=== PATIENT | female | born 1935 | race Caucasian/White ===

== ENCOUNTER 2017-02-28 18:02 | Emergency (ER) | payer MEDICARE ==
[2017-02-28 20:49] LABS: #Basophils 0.1 thou/uL (0.0-0.2); #Eosinphils 0.1 thou/uL (0.0-0.7); #Lymphocytes 1.3 thou/uL (1.20-3.40); #Monocytes 0.4 thou/uL (0.11-0.59); %Basophils 1.2 % (0.0-1.0); %Eosinophils 2.2 % (0.0-10.0); %Lymphocytes 21.6 % (21.0-51.0); %Monocytes 6.8 % (0.0-10.0); Hematocrit 37.5 % (36.0-47.0); Mean Platelet Volume 9.1 fL (7.4-10.4); Red Blood Cell (RBC) Count 3.99 mill/uL (4.20-5.40); White Blood Cell (WBC) Count 5.9 thou/uL (4.8-10.8)
[2017-02-28 21:08] LABS: Anion Gap 14 mmol/L (10-20); BUN (Urea Nitrogen) 15 mg/dL (9.8-20.1); Calc. Creatinine Clearance 0 mL/min (70-130); Carbon Dioxide 27 mmol/L (23-31); Chloride 105 mmol/L (98-107); Estimated GFR-MDRD 68
== END 2017-02-28 21:30 | disposition home or self-care (01) ==
LOC: ERS 18:02
DX: K64.4 Residual hemorrhoidal skin tags (principal); K64.8 Other hemorrhoids; E78.5 Hyperlipidemia, unspecified; E03.9 Hypothyroidism, unspecified; I48.91 Unspecified atrial fibrillation; E11.9 Type 2 diabetes mellitus without complications; E66.9 Obesity, unspecified; J44.9 Chronic obstructive pulmonary disease, unspecified; I11.0 Hypertensive heart disease with heart failure; I50.9 Heart failure, unspecified; F32.9 Major depressive disorder, single episode, unspecified
CPT/HCPCS: 36415; 80048; 85025; 99283

== ENCOUNTER 2017-04-03 16:06 | Emergency (ER) | payer MEDICARE ==
[2017-04-03 19:35] LABS: #Monocytes 0.4 thou/uL (0.11-0.59); #Neutrophils 10.8 thou/uL (1.40-6.50); %Basophils 0.1 % (0.0-1.0); %Eosinophils 0.3 % (0.0-10.0); %Lymphocytes 7.9 % (21.0-51.0); %Monocytes 3.1 % (0.0-10.0); Hematocrit 36.5 % (36.0-47.0); Mean Platelet Volume 8.9 fL (7.4-10.4); White Blood Cell (WBC) Count 12.2 thou/uL (4.8-10.8)
[2017-04-03 19:56] LABS: ALT (SGPT) 7 U/L (8-55); AST (SGOT) 11 U/L (5-34); Alkaline Phosphatase 59 U/L (40-150); Anion Gap 16 mmol/L (10-20); BUN (Urea Nitrogen) 29 mg/dL (9.8-20.1); Bilirubin, Total 0.6 mg/dL (0.2-1.2); Calc. Creatinine Clearance 0 mL/min (70-130); Calcium 10.7 mg/dL (7.8-10.44); Carbon Dioxide 26 mmol/L (23-31); Chloride 103 mmol/L (98-107); Estimated GFR-MDRD 45; Globulin 4.1 g/dL (2.4-3.5); Protein, Total 8.1 g/dL (6.0-8.3)
--- NOTE | 2017-04-03 21:05 | ULT ---
RIGHT LOWER EXTREMITY VENOUS DOPPLER 04/03/17 PROVIDED CLINICAL HISTORY: Right lower extremity pain. FINDINGS: Comparison is made with the study dated 10/10/16. Valdes scale and color doppler sonography with spectral analysis was performed of the right common femo ral, popliteal, posterior tibial, greater saphenous and profunda femoral veins, demonstrating a aiyana l sonographic appearance to each. IMPRESSION: No sonographic evidence for right lower extremity deep venous thrombosis. POS: [facility]
== END 2017-04-03 23:02 | disposition home or self-care (01) ==
LOC: ERS 16:06
DX: L03.115 Cellulitis of right lower limb (principal); E03.9 Hypothyroidism, unspecified; I48.91 Unspecified atrial fibrillation; E11.9 Type 2 diabetes mellitus without complications; E66.9 Obesity, unspecified; M06.9 Rheumatoid arthritis, unspecified; I11.0 Hypertensive heart disease with heart failure; I50.9 Heart failure, unspecified; J44.9 Chronic obstructive pulmonary disease, unspecified; F32.9 Major depressive disorder, single episode, unspecified
CPT/HCPCS: 36415; 80053; 85025; 86140

== ENCOUNTER 2017-04-10 14:56 | Inpatient (IN) | payer MEDICARE ==
[2017-04-10 19:12] LABS: #Basophils 0.1 thou/uL (0.0-0.2); #Eosinphils 0.1 thou/uL (0.0-0.7); #Lymphocytes 0.8 thou/uL (1.20-3.40); #Monocytes 0.4 thou/uL (0.11-0.59); #Neutrophils 5.1 thou/uL (1.40-6.50); %Basophils 0.8 % (0.0-1.0); %Eosinophils 1.1 % (0.0-10.0); %Lymphocytes 12.9 % (21.0-51.0); %Monocytes 6.6 % (0.0-10.0); %Neutrophils 78.6 % (42.0-75.0); Hemoglobin 11.3 g/dL (12.0-16.0); Mean Corpuscular HGB CONC 31.2 g/dL (32.0-36.0); Mean Corpuscular Hemoglobin 30.3 pg (27.0-31.0); Mean Platelet Volume 8.6 fL (7.4-10.4); Platelet Count 287 thou/uL (130-400); RBC Distribution Width 13.9 % (11.5-14.5); Red Blood Cell (RBC) Count 3.73 mill/uL (4.20-5.40); White Blood Cell (WBC) Count 6.4 thou/uL (4.8-10.8)
[2017-04-10 19:24] LABS: ALT (SGPT) 11 U/L (8-55); AST (SGOT) 18 U/L (5-34); Albumin 3.2 g/dL (3.4-4.8); Alkaline Phosphatase 82 U/L (40-150); Anion Gap 15 mmol/L (10-20); BUN (Urea Nitrogen) 13 mg/dL (9.8-20.1); Bilirubin, Total 0.5 mg/dL (0.2-1.2); CK (CPK) 16 U/L (29-168); Calc. Creatinine Clearance 0 mL/min (70-130); Calcium 10.3 mg/dL (7.8-10.44); Carbon Dioxide 23 mmol/L (23-31); Chloride 105 mmol/L (98-107); Estimated GFR-MDRD 72; Glucose 104 mg/dL (83-110); Potassium 5.2 mmol/L (3.5-5.1); Protein, Total 7.2 g/dL (6.0-8.3); Sodium 138 mmol/L (136-145)
[2017-04-10 19:34] LABS: CKMB 0.6 ng/mL (0-6.6)
[2017-04-10 19:44] LABS: Bilirubin Small (Negative); Blood, Urine Negative (Negative); Clarity CLEAR (Clear); Glucose, Urine (Dipstick) Negative (Negative); Leukocyte Negative (Negative); Nitrite Negative (Negative); Protein, Urine (Dipstick) Negative (Neg-Trace); Specific Gravity, Urine 1.028 (1.002-1.036); Urobilinogen 0.2 mg/dL (0.2-1.0); pH, Urine 5.5 (5.0-9.0)
[2017-04-10] MEDS ORDERED: Piperacillin/Tazobactam 4.5 GM in Sodium Chloride 0.9% 100 ML IVPB SCH (20:45)
--- NOTE | 2017-04-10 21:06 | ULT ---
ULTRASOUND WITH DOPPLER DUPLEX VENOUS LOWER EXTREMITY RIGHT CPT: 01764 ICD-10-PCS: B54D HISTORY: Pain, edema and erythema of right lower extremity. COMPARISON: 04/03/17 TECHNIQUE: Color flow Doppler, spectral waveform analysis of pulsed Doppler, and bear-scale imaging with ana adam and augmentation, were used to evaluate the right common femoral, femoral, popliteal, posterior tibial, and superficial femoral, veins; and the proximal portions of the profunda femoral and greater saphenous, veins. FINDINGS: Appropriate compressibility and flow within the imaged deep vein system of the right lower extremity. IMPRESSION: No DVT. Soft tissue edema. Correlate clinically. POS: [facility]
[2017-04-10] MEDS ORDERED: Sodium Chloride 0.9% 1,000 ML IV SCH (22:15)
[2017-04-10 22:57] LABS: Lactic Acid 1.2 mmol/L (0.5-2.2)
[2017-04-10] MEDS ORDERED: Vancomycin HCl 1 GM in Premix Bag 1 BAG IVPB SCH (23:00)
[2017-04-11] MEDS ORDERED: HumaLOG 300 UNITS/3 ML VIAL SC PRN (01:20)
[2017-04-11] MEDS ORDERED: PROVENTIL INHALER 6.7 G (200 INHALATIONS) INH PRN (01:20)
[2017-04-11] MEDS ORDERED: Dextrose 5% in Water 1,000 ML IV PRN (01:20)
[2017-04-11] MEDS ORDERED: Dextrose 50% Abboject 50 ML SYRINGE SLOW IVP PRN (01:20)
[2017-04-11] MEDS ORDERED: Lorazepam 1 MG TAB PO PRN (01:20)
[2017-04-11] MEDS ORDERED: hydrALAZINE 20 MG/ML VIAL SLOW IVP PRN (01:20)
[2017-04-11] MEDS ORDERED: Milk Of Magnesia 30 ML UDCUP PO PRN (01:20)
[2017-04-11] MEDS: Vancomycin HCl 1.5 GM in Sodium Chloride 0.9% 250 ML 300 ML IVPB SCH (03:06)
[2017-04-11] MEDS: HYDROcodone/Acetaminophen 5/325 mg Tablet PO PRN (03:09)
[2017-04-11 03:16] VITALS: BMI 41.5
--- NOTE | 2017-04-11 04:33 | HP ---
PRIMARY CARE PHYSICIAN: Gretchen Pearson M.D. CHIEF COMPLAINT: Pain and swelling in the right leg. HISTORY OF PRESENT ILLNESS: Ms. Hernandez is a very pleasant 81-year-old female who has a history of hyp ertension, atrial fibrillation, diabetes mellitus who says that about 8-10 days ago she began having some pain and swelling in the right leg. She says it started hurting and noticed that it was turning red. She went to the emergency room to see about it, she was diagnosed with cellulitis and started on doxycycline. She says she was taking the antibiotics, but her symptoms did not get any better, in fact she thinks it may even got a little worse. She says that the pain got to the point where she c ould barely put any weight on her legs. She noticed more and more redness. Her home health nurse ca me in to evaluate her in and felt she needed to be seen immediately, this was on . Unfo rtunately, her physician was not in and as a result, she called 911 today and came to the emergency r oom and is being admitted for a right lower extremity cellulitis. It is noted in the ER, she did hav e a lower extremity venous Doppler, which was negative for DVT. The patient denies any fever or chil ls, but has had increasing swelling and pain. She is not really sure how it is started. She denies any trauma and otherwise, no other significant complaints. REVIEW OF SYSTEMS: CONSTITUTIONAL: Again, no fevers, no chills, no night sweats, no weight loss. HEENT: She says she has an occasional headache after having something fall on the top of her head a few years ago. She also occasionally will feel some dizziness related to this as well, but no sore t hroat, no neck pain. No adenopathy. No rhinorrhea. PULMONARY: No hemoptysis, no cough, no wheezing. CARDIOVASCULAR: She denies any chest pain, no shortness of breath, no PND, no orthopnea. GASTROINTESTINAL: She occasionally has some constipation and has had problems with hemorrhoids, no h ematemesis, no melena. GENITOURINARY: No urinary frequency, hematuria or hesitancy. MUSCULOSKELETAL: She complains of arthritis pains "allover." She says she hurts every day. If she does not hurt then she says that something is wrong. NEUROLOGIC: No focal weakness, numbness, no seizures. PSYCHIATRIC: No symptoms of anxiety or depression. SKIN AND INTEGUMENT: As the history of present illness. PAST MEDICAL HISTORY: Significant for hypertension, atrial fibrillation, hypercholesterolemia, diabe jass mellitus type 2, obesity, rheumatoid arthritis, congestive heart failure, and lymphoma. PAST SURGICAL HISTORY: She has had a pericardial window, a left hip surgery, surgery for lymphoma, b reast biopsy and what sounds like a thoracentesis. ALLERGIES: No known drug allergies. SOCIAL HISTORY: She is a nonsmoker, nondrinker. Her son lives with her. CODE STATUS: FULL CODE. FAMILY HISTORY: Significant for cervical cancer and father had cerebrovascular accident. CURRENT MEDICATIONS: Include temazepam 15 mg at bedtime, Aldactone 25 mg daily, Xarelto 20 mg daily, Pravachol 40 mg daily, potassium chloride 20 mEq daily, Protonix 40 mg daily, nitrofurantoin 100 mg twice a day, metformin 1000 mg twice daily, levothyroxine 175 mcg daily, furosemide 40 mg daily, ferr ous sulfate 325 mg daily, Lexapro 10 mg daily, cholestyramine 4 grams daily, carvedilol 6.25 mg twice daily and Proventil 2 puffs q.6 hours as needed. PHYSICAL EXAMINATION: GENERAL: She is alert and oriented. She appears to be in no acute distress. She is well-developed and well-nourished. VITAL SIGNS: Blood pressure was 118/78, heart rate 82, respiratory rate of 18, temperature is 97.5. HEENT: Pupils are equal, round, and reactive. Extraocular muscles are intact. Her sclerae are anic teric. Throat: No erythema, no exudates. NECK: No adenopathy, no bruits. LUNGS: Clear to auscultation, no wheezing, no rales. CARDIOVASCULAR: She has an irregular rhythm, normal rate, grade 2/6 systolic murmur. ABDOMEN: Obese, it is soft, it is nontender, nondistended. Positive for bowel sounds. No rebound, no guarding. EXTREMITIES: She has significant redness and warmth in the right lower extremity. This is extending up into the medial thigh. There are some areas in the posterior popliteal fossa, which are dark red and purplish and also on the medial aspect of her calf. She has got 2 to 3+ pitting edema as well a s some vesicular lesions on the medial ankle on the medial malleolus. Pulses are palpable, but sligh tly diminished. She does have some bunion deformity and hammertoe deformity bilaterally. NEUROLOGIC: It was nonfocal. LABORATORY DATA: Lab results white blood cell count 6.4, hemoglobin 11.3, hematocrit is 36.2, platel et count is 287,000. Sodium 138, potassium 5.2, chloride is 105, CO2 was 23, BUN of 13, creatinine 0 .77, glucose is 72. Urinalysis was significant for small bilirubin. An x-ray, vascular ultrasound w as negative for DVT. ASSESSMENT: 1. This is a pleasant 81-year-old female that is being admitted for lower extremity edema and swelli ng and redness and she has failed outpatient treatment with doxycycline for cellulitis. She will be admitted to the medical floor, started on antibiotics to cover Staph and strep including vancomycin f or methicillin-resistant staphylococcus aureus. Blood cultures will be obtained, if not done so alre raffaele in the ER. We will also get a wound care consult. 2. Atrial fibrillation, we will continue her usual medications including Xarelto for cerebrovascular accident prevention. 3. Diabetes mellitus, again continue her home medications as well as sliding scale insulin. 4. Hypertension, again home medications and p.r.n. antihypertensive medications. Since she is on an ticoagulation, she will not need deep venous thrombosis prophylaxis. However, we will continue gastr ointestinal prophylaxis. I suspect she will need to be hospitalized for at least 2-3 midnights in [facility] area prior to being discharged home.
[2017-04-11 05:05] LABS: #Basophils 0.1 thou/uL (0.0-0.2); #Eosinphils 0.1 thou/uL (0.0-0.7); #Lymphocytes 1.1 thou/uL (1.20-3.40); #Monocytes 0.5 thou/uL (0.11-0.59); #Neutrophils 4.3 thou/uL (1.40-6.50); %Basophils 0.8 % (0.0-1.0); %Eosinophils 1.9 % (0.0-10.0); %Lymphocytes 18.3 % (21.0-51.0); %Monocytes 8.9 % (0.0-10.0); %Neutrophils 70.1 % (42.0-75.0); Hemoglobin 9.8 g/dL (12.0-16.0); Mean Corpuscular HGB CONC 30.2 g/dL (32.0-36.0); Mean Corpuscular Hemoglobin 29.3 pg (27.0-31.0); Mean Corpuscular Volume 97.1 fl (81.0-99.0); Mean Platelet Volume 7.8 fL (7.4-10.4); Platelet Count 273 thou/uL (130-400); RBC Distribution Width 13.6 % (11.5-14.5); Red Blood Cell (RBC) Count 3.36 mill/uL (4.20-5.40); White Blood Cell (WBC) Count 6.1 thou/uL (4.8-10.8)
[2017-04-11] MEDS: Piperacillin/Tazobactam 3.375 GM in Sodium Chloride 0.9% 100 ML IVPB SCH ×4 (05:51→23:58)
[2017-04-11] MEDS: Levothyroxine 175 MCG TAB PO SCH (05:52)
[2017-04-11 05:58] LABS: Anion Gap 10 mmol/L (10-20); BUN (Urea Nitrogen) 12 mg/dL (9.8-20.1); Calc. Creatinine Clearance 98 mL/min (70-130); Calcium 9.9 mg/dL (7.8-10.44); Carbon Dioxide 31 mmol/L (23-31); Chloride 105 mmol/L (98-107); Estimated GFR-MDRD 72; Glucose 135 mg/dL (83-110); Sodium 141 mmol/L (136-145)
[2017-04-11] MEDS ORDERED: Piperacillin/Tazobactam 4.5 GM in Sodium Chloride 0.9% 100 ML IVPB SCH (06:00)
[2017-04-11] MEDS: Spironolactone 25 MG TAB PO SCH (08:16)
[2017-04-11] MEDS ORDERED: Vancomycin HCl 1 GM in Premix Bag 1 BAG IVPB SCH (09:00)
[2017-04-11] MEDS ORDERED: Non-Formulary Item 1 EACH (Potassium Chloride [Potassium Chloride] 20 MEQ) PO SCH (09:00)
[2017-04-11] MEDS: Escitalopram Oxalate 10 mg Tablet PO SCH (09:04)
[2017-04-11] MEDS: Famotidine 20 MG TAB PO SCH ×2 (09:04→19:21)
[2017-04-11] MEDS: Carvedilol 6.25 MG TAB PO SCH ×2 (09:04→19:21)
[2017-04-11] MEDS: Docusate 100 MG CAP PO SCH ×2 (09:04→19:20)
[2017-04-11] MEDS: Ferrous Sulfate 325 MG TAB PO SCH (09:05)
[2017-04-11] MEDS: Furosemide 40 MG TAB PO SCH (09:07)
[2017-04-11] MEDS: Rivaroxaban 10 MG TAB PO SCH (17:26)
[2017-04-11] MEDS: HYDROcodone/Acetaminophen 10/325 mg Tablet PO PRN (19:20)
[2017-04-11] MEDS: Atorvastatin Calcium 10 MG TAB PO SCH (19:20)
[2017-04-11] MEDS: Acetaminophen 325 MG TAB PO PRN (19:21)
[2017-04-12 02:38] LABS: Vancomycin, Trough 9.2 ug/mL
[2017-04-12] MEDS: Vancomycin HCl 1.5 GM in Sodium Chloride 0.9% 250 ML 300 ML IVPB SCH (02:50)
[2017-04-12] MEDS: Levothyroxine 175 MCG TAB PO SCH (05:48)
[2017-04-12] MEDS: Piperacillin/Tazobactam 3.375 GM in Sodium Chloride 0.9% 100 ML IVPB SCH ×3 (05:48→18:09)
--- NOTE | 2017-04-12 09:14 | PDOC.PN ---
- Subjective Encounter Start Date: 04/12/17 Encounter Start Time: 10:30 Subjective: Pain and swelling in RLE improved some today. No fever. No other -: complaint. - Objective Resuscitation Status: Resuscitation Status FULL:Full Resuscitation MAR Reviewed: Yes Vital Signs & Weight: Vital Signs (12 hours) Temp Pulse Resp BP Pulse Ox 04/12/17 07:28 97.7 F 77 20 107/71 92 L 04/12/17 05:17 97/63 04/12/17 00:20 98.1 F 75 18 108/69 92 L Weight Admit Weight 242 lb Weight 242 lb I&O: 04/11/17 04/12/17 04/13/17 06:59 06:59 06:59 Intake Total 900 Balance 900 Result Diagrams: 04/11/17 03:20 04/11/17 03:20 Additional Labs: Accuchecks 04/12/17 04/11/17 04/11/17 05:10 20:42 16:15 POC Glucose 111 H 172 H 130 H 04/11/17 11:20 POC Glucose 129 H Phys Exam - Physical Examination Constitutional: NAD HEENT: moist MMs Respiratory: no wheezing, no rales, no rhonchi, clear to auscultation bilateral Cardiovascular: RRR, no significant murmur Gastrointestinal: soft, positive bowel sounds Neurological: non-focal, moves all 4 limbs Psychiatric: normal affect, A&O x 3 Deviation from normal: cellulitis to RLE, improved on thigh from admit pictures , some small -: bullae on medial leg not draining Dx/Plan (1) Cellulitis of right lower extremity Code(s): L03.115 - CELLULITIS OF RIGHT LOWER LIMB Status: Acute Plan: Improving with IV antibiotics Comment: Zosyn and Vancomycin since 04/10/2017 PM (2) Atrial fibrillation Code(s): I48.91 - UNSPECIFIED ATRIAL FIBRILLATION Status: Chronic Qualifiers: (3) Chronic anticoagulation Code(s): Z79.01 - NURSING HOME (CURRENT) USE OF ANTICOAGULANTS Status: Chronic (4) DM2 (diabetes mellitus, type 2) Status: Chronic Qualifiers: Diabetes mellitus complication status: without complication Diabetes mellitus [facility] insulin use: with [facility] use Qualified Code(s): E11.9 - Type 2 diabetes mellitus without complications; Z79.4 - USP (current) use of insulin; Z79.4 - truck terminal manager (current) use of insulin; Z79.4 - truck terminal manager ( current) use of insulin; Z79.4 - truck terminal manager (current) use of insulin (5) HLD (hyperlipidemia) Code(s): E78.5 - HYPERLIPIDEMIA, UNSPECIFIED Status: Chronic (6) HTN (hypertension) Code(s): I10 - ESSENTIAL (PRIMARY) HYPERTENSION Status: Chronic (7) Hypothyroidism Code(s): E03.9 - HYPOTHYROIDISM, UNSPECIFIED Status: Chronic (8) Morbid obesity with BMI of 40.0-44.9, adult Code(s): E66.01 - MORBID (SEVERE) OBESITY DUE TO EXCESS CALORIES; Z68.41 - BODY MASS INDEX (BMI) 40.0-44.9, ADULT Status: Chronic (9) Pulmonary hypertension Code(s): I27.2 - OTHER SECONDARY PULMONARY HYPERTENSION * DO NOT USE * Status : Chronic - Plan cont current plan of care, continue antibiotics, PT/OT, DVT proph w/SCDs Afebrile without leukocytosis. Anticipate at least 1-2 more days of IV -: antibiotics before can consider switch to oral and d/c. Concern for -: possible staph with bullae. Will need MRSA coverage on d/c. * . - Discharge Day Encounter end time: 11:00
[2017-04-12] MEDS: Ferrous Sulfate 325 MG TAB PO SCH (10:23)
[2017-04-12] MEDS: Carvedilol 6.25 MG TAB PO SCH ×2 (10:24→20:16)
[2017-04-12] MEDS: Spironolactone 25 MG TAB PO SCH (10:25)
[2017-04-12] MEDS: Escitalopram Oxalate 10 mg Tablet PO SCH (10:25)
[2017-04-12] MEDS: Docusate 100 MG CAP PO SCH ×2 (10:25→20:16)
[2017-04-12] MEDS: Furosemide 40 MG TAB PO SCH (10:25)
--- NOTE | 2017-04-12 11:00 | PQF ---
CLINICAL DOCUMENTATION IMPROVEMENT CLARIFICATION FORM: ICD-10 Updated PLEASE DO AN ADDENDUM TO THE PROGRESS NOTE WITH ANY DOCUMENTATION UPDATES OR ADDITIONS AND CARRY THROUGH TO DC SUMMARY. THANK YOU. DATE: 04/12, 04/13 ATTN: DR. Xiomy HERNÁNDEZ/ DR. DORIS MCLEAN Please exercise your independent, professional judgment in responding to the clarification form. Clinical indicators are provided on the bottom of this form for your review. Please check appropriate box(s): R LE CELLULITIS [ ] Due to Diabetes [ ] Not due to Diabetes [ ] Other diagnosis [X ] Unable to determine For continuity of documentation, please document condition throughout progress notes and discharge summary. Thank You. CLINICAL INDICATORS - SIGNS / SYMPTOMS / LABS PHYSICIAN H&P DOCUMENTATION 04/10: HX OF PRESENT ILLNESS: ...HX OF HTN, AFIB, DIABETES MELLITUS II WHO STATES 8-10 DAYS AGO SHE BEGAN HAVING PAIN & SWELLING TO R LEG. ...SHE WENT TO ER & WAS DIAGNOSED WITH CELLULITIS & STARTED ON DOXYCYCLINE. ASSESSMENT: 1. ...ADMITTED FOR LE EDEMA & SWELLING & REDNESS & SHE HAS FAILED OUTPT TREATMENT FOR CELLULITIS ATTENDING PN 04/12: DX/PLAN: 1. CELLULITIS RLE; 4. DM II, CHRONIC RISKS: DM II MORBID OBESITY TREATMENT: IV ANTIBIOTICS (ZOSYN & VANCOMYCIN 04/10 - PRESENT) WOUND CARE CONSULT THANK YOU! Shanna (This form is maintained as a part of the permanent medical record) 2014 [employer]. All Rights Reserved Shanna Devine RN, BSN [email or web address] Office: [phone] [facility]
[2017-04-12] MEDS: Famotidine 20 MG TAB PO SCH ×2 (12:32→20:16)
[2017-04-12] MEDS: Vancomycin HCl 1 GM in Premix Bag 1 BAG IVPB SCH (15:21)
[2017-04-12] MEDS: HYDROcodone/Acetaminophen 5/325 mg Tablet PO PRN (15:22)
[2017-04-12] MEDS: Rivaroxaban 10 MG TAB PO SCH (18:09)
[2017-04-12] MEDS: HumaLOG 300 UNITS/3 ML VIAL SC PRN (18:13)
[2017-04-12] MEDS: HYDROcodone/Acetaminophen 10/325 mg Tablet PO PRN (20:16)
[2017-04-12] MEDS: Atorvastatin Calcium 10 MG TAB PO SCH (20:16)
[2017-04-12] MEDS: Temazepam 15 MG CAP PO PRN ×2 (22:36)
[2017-04-13] MEDS: Piperacillin/Tazobactam 3.375 GM in Sodium Chloride 0.9% 100 ML IVPB SCH ×4 (00:20→18:39)
[2017-04-13] MEDS: Vancomycin HCl 1 GM in Premix Bag 1 BAG IVPB SCH ×2 (02:14→14:48)
[2017-04-13 04:37] LABS: Hemoglobin 9.2 g/dL (12.0-16.0); Platelet Count 240 thou/uL (130-400)
[2017-04-13] MEDS: Levothyroxine 175 MCG TAB PO SCH (05:06)
[2017-04-13] MEDS: HumaLOG 300 UNITS/3 ML VIAL SC PRN ×2 (05:47→13:26)
[2017-04-13] MEDS: HYDROcodone/Acetaminophen 10/325 mg Tablet PO PRN ×3 (05:52→20:24)
[2017-04-13] MEDS: Carvedilol 6.25 MG TAB PO SCH ×2 (09:06→20:23)
[2017-04-13] MEDS: Spironolactone 25 MG TAB PO SCH (09:06)
[2017-04-13] MEDS: Ferrous Sulfate 325 MG TAB PO SCH (09:06)
[2017-04-13] MEDS: Furosemide 40 MG TAB PO SCH (09:06)
[2017-04-13] MEDS: Famotidine 20 MG TAB PO SCH ×2 (09:06→20:24)
[2017-04-13] MEDS: Docusate 100 MG CAP PO SCH ×2 (09:07→20:24)
[2017-04-13] MEDS: Escitalopram Oxalate 10 mg Tablet PO SCH (09:07)
--- NOTE | 2017-04-13 13:32 | PDOC.PN ---
- Subjective Encounter Start Date: 04/13/17 Encounter Start Time: 13:30 Ms. Hernandez was seen today in follow-up of cellulitis of the leg. She feels like her leg has improved, but she continues to have soreness in it especially when she puts pressure on it. - Objective Resuscitation Status: Resuscitation Status FULL:Full Resuscitation MAR Reviewed: Yes Vital Signs & Weight: Vital Signs (12 hours) Temp Pulse Resp BP BP Pulse Ox 04/13/17 09:06 100/56 L 04/13/17 08:00 97.6 F 77 14 100/56 L 92 L 04/13/17 05:00 98.5 F 87 20 103/70 Weight Admit Weight 242 lb Weight 242 lb I&O: 04/12/17 04/13/17 04/14/17 06:59 06:59 06:59 Intake Total 900 Balance 900 Result Diagrams: 04/13/17 03:27 04/11/17 03:20 Additional Labs: Accuchecks 04/13/17 04/13/17 04/12/17 11:01 05:09 21:03 POC Glucose 159 H 217 H 165 H 04/12/17 16:51 POC Glucose 167 H Phys Exam - Physical Examination HEENT: PERRLA Respiratory: no wheezing, no rales, no rhonchi, clear to auscultation bilateral Cardiovascular: RRR, no significant murmur Gastrointestinal: soft, non-tender, positive bowel sounds Musculoskeletal: edema present + extensive swelling in the right lower extremity, erythema, - slightly improved Dx/Plan (1) Cellulitis of right lower extremity Code(s): L03.115 - CELLULITIS OF RIGHT LOWER LIMB Status: Acute Comment: Zosyn and Vancomycin since 04/10/2017 PM (2) Atrial fibrillation Code(s): I48.91 - UNSPECIFIED ATRIAL FIBRILLATION Status: Chronic Qualifiers: (3) Chronic anticoagulation Code(s): Z79.01 - ILLUSIONIST (CURRENT) USE OF ANTICOAGULANTS Status: Chronic (4) DM2 (diabetes mellitus, type 2) Status: Chronic Qualifiers: Diabetes mellitus complication status: without complication Diabetes mellitus [facility] insulin use: with [facility] use Qualified Code(s): E11.9 - Type 2 diabetes mellitus without complications; Z79.4 - [facility] (current) use of insulin; Z79.4 - adjunct faculty for medical terminology (current) use of insulin; Z79.4 - adjunct faculty for medical terminology ( current) use of insulin; Z79.4 - [facility] (current) use of insulin (5) HTN (hypertension) Code(s): I10 - ESSENTIAL (PRIMARY) HYPERTENSION Status: Chronic (6) Hypothyroidism Code(s): E03.9 - HYPOTHYROIDISM, UNSPECIFIED Status: Chronic - Plan * Cellulitis of the right lower extremity- continue Vancomycin and Zosyn - she has had some improvement * DM- blood glucose is stable * HTN- blood pressure is low normal * AFIB- clinically she is in sinus, rate is controlled, she is on Xarelto for CVA prevention. * Hypothyroidism- chronic and stable
[2017-04-13] MEDS: Rivaroxaban 10 MG TAB PO SCH (18:39)
[2017-04-13] MEDS: Atorvastatin Calcium 10 MG TAB PO SCH (20:23)
[2017-04-14] MEDS: Piperacillin/Tazobactam 3.375 GM in Sodium Chloride 0.9% 100 ML IVPB SCH ×5 (00:13→23:47)
[2017-04-14 02:09] LABS: #Eosinphils 0.2 thou/uL (0.0-0.7); #Lymphocytes 1.1 thou/uL (1.20-3.40); #Monocytes 0.4 thou/uL (0.11-0.59); #Neutrophils 5.5 thou/uL (1.40-6.50); %Basophils 0.2 % (0.0-1.0); %Eosinophils 2.2 % (0.0-10.0); %Monocytes 5.7 % (0.0-10.0); %Neutrophils 76.9 % (42.0-75.0); Hemoglobin 9.3 g/dL (12.0-16.0); Mean Corpuscular Hemoglobin 30.8 pg (27.0-31.0); Mean Platelet Volume 7.2 fL (7.4-10.4); Platelet Count 261 thou/uL (130-400); RBC Distribution Width 13.5 % (11.5-14.5); Red Blood Cell (RBC) Count 3.02 mill/uL (4.20-5.40); White Blood Cell (WBC) Count 7.2 thou/uL (4.8-10.8)
[2017-04-14 02:29] LABS: Vancomycin, Trough 22.1 ug/mL
[2017-04-14] MEDS: Vancomycin HCl 1 GM in Premix Bag 1 BAG IVPB SCH (02:34)
[2017-04-14 02:35] LABS: Anion Gap 13 mmol/L (10-20); BUN (Urea Nitrogen) 9 mg/dL (9.8-20.1); Calc. Creatinine Clearance 93 mL/min (70-130); Calcium 9.3 mg/dL (7.8-10.44); Carbon Dioxide 31 mmol/L (23-31); Chloride 103 mmol/L (98-107); Estimated GFR-MDRD 68; Glucose 115 mg/dL (83-110); Potassium 3.9 mmol/L (3.5-5.1); Sodium 143 mmol/L (136-145)
[2017-04-14] MEDS: HumaLOG 300 UNITS/3 ML VIAL SC PRN (05:16)
[2017-04-14] MEDS: Levothyroxine 175 MCG TAB PO SCH (05:16)
[2017-04-14] MEDS: Docusate 100 MG CAP PO SCH ×2 (08:05→19:53)
[2017-04-14] MEDS: Carvedilol 6.25 MG TAB PO SCH ×2 (08:05→19:53)
[2017-04-14] MEDS: Famotidine 20 MG TAB PO SCH ×2 (08:06→19:53)
[2017-04-14] MEDS: Escitalopram Oxalate 10 mg Tablet PO SCH (08:06)
[2017-04-14] MEDS: Spironolactone 25 MG TAB PO SCH (08:06)
[2017-04-14] MEDS: Furosemide 40 MG TAB PO SCH (08:06)
[2017-04-14] MEDS: Ferrous Sulfate 325 MG TAB PO SCH (08:06)
[2017-04-14] MEDS: HYDROcodone/Acetaminophen 10/325 mg Tablet PO PRN ×2 (11:50→19:54)
--- NOTE | 2017-04-14 15:05 | PDOC.PN ---
- Subjective Encounter Start Date: 04/14/17 Encounter Start Time: 15:03 Ms. Hernandez was seen today in follow-up. She says the pain in her leg has improved some. No new complaints. - Objective Resuscitation Status: Resuscitation Status FULL:Full Resuscitation MAR Reviewed: Yes Vital Signs & Weight: Vital Signs (12 hours) Temp Pulse Resp BP BP BP Pulse Ox 04/14/17 08:21 97.9 F 80 22 H 108/70 94 L 04/14/17 08:05 100/56 L 04/14/17 08:00 97.9 F 80 22 H 98 04/14/17 04:19 98.2 F 73 18 98/67 92 L Weight Admit Weight 242 lb Weight 242 lb I&O: 04/13/17 04/14/17 04/15/17 06:59 06:59 06:59 Intake Total 600 480 Balance 600 480 Result Diagrams: 04/14/17 01:55 04/14/17 01:55 Additional Labs: Accuchecks 04/14/17 04/14/17 04/13/17 11:49 04:19 19:28 POC Glucose 201 H 185 H 186 H 04/13/17 16:00 POC Glucose 121 H Phys Exam - Physical Examination HEENT: PERRLA Respiratory: no wheezing, no rales, no rhonchi, clear to auscultation bilateral Cardiovascular: RRR, no significant murmur, no rub Gastrointestinal: soft, non-tender, positive bowel sounds Musculoskeletal: edema present decreasing edema, and erythema of the right lower extremity Dx/Plan (1) Cellulitis of right lower extremity Code(s): L03.115 - CELLULITIS OF RIGHT LOWER LIMB Status: Acute Comment: Zosyn and Vancomycin since 04/10/2017 PM (2) Atrial fibrillation Code(s): I48.91 - UNSPECIFIED ATRIAL FIBRILLATION Status: Chronic Qualifiers: (3) Chronic anticoagulation Code(s): Z79.01 - UNHAIRING MACHINE OPERATOR (CURRENT) USE OF ANTICOAGULANTS Status: Chronic (4) DM2 (diabetes mellitus, type 2) Status: Chronic Qualifiers: Diabetes mellitus complication status: without complication Diabetes mellitus [facility] insulin use: with lobsterman use Qualified Code(s): E11.9 - Type 2 diabetes mellitus without complications; Z79.4 - lobsterman (current) use of insulin; Z79.4 - lobsterman (current) use of insulin; Z79.4 - lobsterman ( current) use of insulin; Z79.4 - custodial (current) use of insulin (5) HTN (hypertension) Code(s): I10 - ESSENTIAL (PRIMARY) HYPERTENSION Status: Chronic (6) Hypothyroidism Code(s): E03.9 - HYPOTHYROIDISM, UNSPECIFIED Status: Chronic - Plan * Cellulitis- improving- continue the current antibiotics * DM- blood glucose is stable. * AFIB- heart rate is stable, and continue Xarelto * Hypothyroidism- stable
[2017-04-14] MEDS: Rivaroxaban 10 MG TAB PO SCH (17:38)
[2017-04-14] MEDS: Atorvastatin Calcium 10 MG TAB PO SCH (19:53)
[2017-04-15] MEDS: Temazepam 15 MG CAP PO PRN (00:25)
[2017-04-15] MEDS: Vancomycin HCl 1.75 GM in Sodium Chloride 0.9% 500 ML IVPB SCH (02:18)
[2017-04-15 05:16] LABS: Hemoglobin 8.8 g/dL (12.0-16.0); Platelet Count 263 thou/uL (130-400)
[2017-04-15] MEDS: Piperacillin/Tazobactam 3.375 GM in Sodium Chloride 0.9% 100 ML IVPB SCH ×3 (05:19→17:47)
[2017-04-15] MEDS: Levothyroxine 175 MCG TAB PO SCH (05:21)
[2017-04-15] MEDS: Ferrous Sulfate 325 MG TAB PO SCH (08:02)
[2017-04-15] MEDS: Docusate 100 MG CAP PO SCH ×2 (08:02→21:26)
[2017-04-15] MEDS: Famotidine 20 MG TAB PO SCH ×2 (08:02→21:26)
[2017-04-15] MEDS: Furosemide 40 MG TAB PO SCH (08:02)
[2017-04-15] MEDS: Spironolactone 25 MG TAB PO SCH (08:02)
[2017-04-15] MEDS: Carvedilol 6.25 MG TAB PO SCH ×2 (08:02→21:26)
[2017-04-15] MEDS: Escitalopram Oxalate 10 mg Tablet PO SCH (08:02)
[2017-04-15] MEDS: HYDROcodone/Acetaminophen 10/325 mg Tablet PO PRN ×2 (08:05→18:48)
--- NOTE | 2017-04-15 16:23 | PDOC.PN ---
- Subjective Encounter Start Date: 04/15/17 Encounter Start Time: 16:21 Ms. Hernandez was seen today in follow-up of right leg cellulits. She notes continued improvement in the leg with regards to pain and swelling. - Objective Resuscitation Status: Resuscitation Status FULL:Full Resuscitation MAR Reviewed: Yes Vital Signs & Weight: Vital Signs (12 hours) Temp Pulse Resp BP BP Pulse Ox 04/15/17 08:02 135/83 04/15/17 08:00 97.9 F 79 19 118/70 95 Weight Admit Weight 242 lb Weight 242 lb I&O: 04/14/17 04/15/17 04/16/17 06:59 06:59 06:59 Intake Total 600 1540 480 Balance 600 1540 480 Result Diagrams: 04/15/17 03:42 04/14/17 01:55 Additional Labs: Accuchecks 04/15/17 04/15/17 04/14/17 11:02 05:25 19:50 POC Glucose 199 H 111 H 166 H Phys Exam - Physical Examination HEENT: PERRLA Respiratory: no wheezing, no rales, no rhonchi, clear to auscultation bilateral Cardiovascular: RRR, no significant murmur Gastrointestinal: soft, non-tender, positive bowel sounds Decreased swelling in the right lower extremity, erythema has improved Dx/Plan (1) Cellulitis of right lower extremity Code(s): L03.115 - CELLULITIS OF RIGHT LOWER LIMB Status: Acute Comment: Zosyn and Vancomycin since 04/10/2017 PM (2) Atrial fibrillation Code(s): I48.91 - UNSPECIFIED ATRIAL FIBRILLATION Status: Chronic Qualifiers: (3) Chronic anticoagulation Code(s): Z79.01 - [employer]ITY (CURRENT) USE OF ANTICOAGULANTS Status: Chronic (4) DM2 (diabetes mellitus, type 2) Status: Chronic Qualifiers: Diabetes mellitus complication status: without complication Diabetes mellitus terminologist insulin use: with [facility] use Qualified Code(s): E11.9 - Type 2 diabetes mellitus without complications; Z79.4 - terminologist (current) use of insulin; Z79.4 - correction (current) use of insulin; Z79.4 - terminologist ( current) use of insulin; Z79.4 - correction (current) use of insulin (5) HTN (hypertension) Code(s): I10 - ESSENTIAL (PRIMARY) HYPERTENSION Status: Chronic (6) Hypothyroidism Code(s): E03.9 - HYPOTHYROIDISM, UNSPECIFIED Status: Chronic - Plan * Right Lower extremity Cellulitis- Continue IV antibiotics 1-2 more days then transition to oral * HTN- blood pressure is stable * DM- blood glucose is stable.
[2017-04-15] MEDS: Rivaroxaban 10 MG TAB PO SCH (17:48)
[2017-04-15] MEDS: Atorvastatin Calcium 10 MG TAB PO SCH (21:27)
[2017-04-16] MEDS: Piperacillin/Tazobactam 3.375 GM in Sodium Chloride 0.9% 100 ML IVPB SCH ×3 (00:26→11:21)
[2017-04-16 02:36] LABS: Vancomycin, Trough 18.7 ug/mL
[2017-04-16] MEDS: Vancomycin HCl 1.75 GM in Sodium Chloride 0.9% 500 ML IVPB SCH (03:35)
[2017-04-16] MEDS: Levothyroxine 175 MCG TAB PO SCH (06:00)
[2017-04-16] MEDS: Famotidine 20 MG TAB PO SCH ×2 (08:16→20:45)
[2017-04-16] MEDS: Carvedilol 6.25 MG TAB PO SCH ×2 (08:16→20:42)
[2017-04-16] MEDS: Docusate 100 MG CAP PO SCH ×2 (08:16→20:42)
[2017-04-16] MEDS: Spironolactone 25 MG TAB PO SCH (08:17)
[2017-04-16] MEDS: Furosemide 40 MG TAB PO SCH (08:17)
[2017-04-16] MEDS: Ferrous Sulfate 325 MG TAB PO SCH (08:17)
[2017-04-16] MEDS: Escitalopram Oxalate 10 mg Tablet PO SCH (08:17)
--- NOTE | 2017-04-16 15:50 | PDOC.PN ---
- Subjective Encounter Start Date: 04/16/17 Encounter Start Time: 15:49 Ms. Hernandez was seen today in follow-up of cellulitis. She says she had some trouble last night due to some mild dyspnea. She also says her leg is a little sore. - Objective Resuscitation Status: Resuscitation Status FULL:Full Resuscitation MAR Reviewed: Yes Vital Signs & Weight: Vital Signs (12 hours) Temp Pulse Resp BP BP Pulse Ox 04/16/17 09:00 97.8 F 85 18 147/93 H 95 04/16/17 08:16 130/84 04/16/17 08:00 98.3 F 84 20 95 Weight Admit Weight 242 lb Weight 242 lb I&O: 04/15/17 04/16/17 04/17/17 06:59 06:59 06:59 Intake Total 1540 720 600 Balance 1540 720 600 Result Diagrams: 04/15/17 03:42 04/14/17 01:55 Additional Labs: Accuchecks 04/16/17 04/15/17 04/15/17 05:31 19:58 16:10 POC Glucose 131 H 197 H 127 H Phys Exam - Physical Examination HEENT: PERRLA + rhonchi at the bases Cardiovascular: RRR, no significant murmur Gastrointestinal: soft, non-tender, positive bowel sounds Musculoskeletal: edema present trace pedal edema- redness is much improved, as well as swelling in the right lower extremity Dx/Plan (1) Cellulitis of right lower extremity Code(s): L03.115 - CELLULITIS OF RIGHT LOWER LIMB Status: Acute Comment: Zosyn and Vancomycin since 04/10/2017 PM (2) Atrial fibrillation Code(s): I48.91 - UNSPECIFIED ATRIAL FIBRILLATION Status: Chronic Qualifiers: (3) Chronic anticoagulation Code(s): Z79.01 - ALF (CURRENT) USE OF ANTICOAGULANTS Status: Chronic (4) DM2 (diabetes mellitus, type 2) Status: Chronic Qualifiers: Diabetes mellitus complication status: without complication Diabetes mellitus superintendent marine oil terminal insulin use: with superintendent marine oil terminal use Qualified Code(s): E11.9 - Type 2 diabetes mellitus without complications; Z79.4 - skilled nursing (current) use of insulin; Z79.4 - skilled nursing (current) use of insulin; Z79.4 - skilled nursing ( current) use of insulin; Z79.4 - buttermaker (current) use of insulin (5) HTN (hypertension) Code(s): I10 - ESSENTIAL (PRIMARY) HYPERTENSION Status: Chronic (6) Hypothyroidism Code(s): E03.9 - HYPOTHYROIDISM, UNSPECIFIED Status: Chronic - Plan * Cellultis- much improved- will change the antibiotics to Keflex * DM- blood glucose is stable * AFIB- heart rate is controlled * HTN - blood pressure is stable * When discussing discharge plans with the patient she says she is concerned about going home because she is afraid her house will not be warm enough. I mentioned the possiblity of going to long-term but she did not like that idea. She is aware she clinically ready for discharge regarding the cellulitis. Will watch overnight on Keflex, and if she is still apprehensive about going home, then will need to consult Case management for discharge planning.
[2017-04-16] MEDS: Rivaroxaban 10 MG TAB PO SCH (17:07)
[2017-04-16] MEDS: Atorvastatin Calcium 10 MG TAB PO SCH (20:42)
[2017-04-16] MEDS: HYDROcodone/Acetaminophen 10/325 mg Tablet PO PRN (20:45)
[2017-04-16] MEDS: Cephalexin 250 MG CAP PO SCH (21:39)
[2017-04-16] MEDS: Temazepam 15 MG CAP PO PRN (23:18)
[2017-04-17 05:16] LABS: Hemoglobin 9.7 g/dL (12.0-16.0); Platelet Count 288 thou/uL (130-400)
[2017-04-17] MEDS: Levothyroxine 175 MCG TAB PO SCH (05:54)
[2017-04-17] MEDS: Docusate 100 MG CAP PO SCH ×2 (08:26→21:17)
[2017-04-17] MEDS: Ferrous Sulfate 325 MG TAB PO SCH (08:26)
[2017-04-17] MEDS: Famotidine 20 MG TAB PO SCH ×2 (08:27→21:14)
[2017-04-17] MEDS: Furosemide 40 MG TAB PO SCH (08:27)
[2017-04-17] MEDS: Carvedilol 6.25 MG TAB PO SCH ×2 (08:27→21:16)
[2017-04-17] MEDS: Escitalopram Oxalate 10 mg Tablet PO SCH (08:27)
[2017-04-17] MEDS: Spironolactone 25 MG TAB PO SCH (08:27)
[2017-04-17] MEDS: Cephalexin 250 MG CAP PO SCH (08:27)
[2017-04-17] MEDS: HumaLOG 300 UNITS/3 ML VIAL SC PRN (11:20)
[2017-04-17] MEDS: Nystatin Powder 15 GM BOT TOP PRN (11:22)
[2017-04-17] MEDS ORDERED: Vancomycin HCl 1 GM in Premix Bag 1 BAG IVPB SCH (16:45)
[2017-04-17 17:22] LABS: Anion Gap 12 mmol/L (10-20); BUN (Urea Nitrogen) 12 mg/dL (9.8-20.1); Calc. Creatinine Clearance 85 mL/min (70-130); Calcium 10.5 mg/dL (7.8-10.44); Carbon Dioxide 32 mmol/L (23-31); Chloride 103 mmol/L (98-107); Estimated GFR-MDRD 62; Glucose 117 mg/dL (83-110); Potassium 4.2 mmol/L (3.5-5.1); Sodium 143 mmol/L (136-145)
[2017-04-17] MEDS: Rivaroxaban 10 MG TAB PO SCH (17:56)
[2017-04-17] MEDS: Amoxicillin/Potassium Clav 875 MG TAB PO SCH (21:14)
[2017-04-17] MEDS: Atorvastatin Calcium 10 MG TAB PO SCH (21:14)
[2017-04-17] MEDS: Temazepam 15 MG CAP PO PRN (22:34)
[2017-04-17] MEDS: HYDROcodone/Acetaminophen 10/325 mg Tablet PO PRN (22:36)
[2017-04-18 02:08] LABS: #Eosinphils 0.1 thou/uL (0.0-0.7); #Monocytes 0.5 thou/uL (0.11-0.59); #Neutrophils 5.1 thou/uL (1.40-6.50); %Basophils 0.2 % (0.0-1.0); %Eosinophils 1.7 % (0.0-10.0); %Lymphocytes 14.9 % (21.0-51.0); %Monocytes 6.7 % (0.0-10.0); %Neutrophils 76.5 % (42.0-75.0); Hemoglobin 10.1 g/dL (12.0-16.0); Mean Corpuscular HGB CONC 31.5 g/dL (32.0-36.0); Mean Corpuscular Hemoglobin 30.2 pg (27.0-31.0); Mean Platelet Volume 7.5 fL (7.4-10.4); Platelet Count 296 thou/uL (130-400); RBC Distribution Width 13.7 % (11.5-14.5); Red Blood Cell (RBC) Count 3.35 mill/uL (4.20-5.40); White Blood Cell (WBC) Count 6.6 thou/uL (4.8-10.8)
[2017-04-18 02:26] LABS: Vancomycin, Trough 9.6 ug/mL
[2017-04-18] MEDS: Vancomycin HCl 1.75 GM in Sodium Chloride 0.9% 500 ML IVPB SCH (02:55)
[2017-04-18] MEDS: Levothyroxine 175 MCG TAB PO SCH (05:27)
[2017-04-18] MEDS: Carvedilol 6.25 MG TAB PO SCH ×2 (08:35→20:49)
[2017-04-18] MEDS: Ferrous Sulfate 325 MG TAB PO SCH (08:35)
[2017-04-18] MEDS: Escitalopram Oxalate 10 mg Tablet PO SCH (08:35)
[2017-04-18] MEDS: Furosemide 40 MG TAB PO SCH (08:35)
[2017-04-18] MEDS: Spironolactone 25 MG TAB PO SCH (08:35)
[2017-04-18] MEDS: Amoxicillin/Potassium Clav 875 MG TAB PO SCH ×2 (08:35→20:49)
[2017-04-18] MEDS: Famotidine 20 MG TAB PO SCH ×2 (08:35→20:50)
[2017-04-18] MEDS: Nystatin Powder 15 GM BOT TOP PRN (08:36)
[2017-04-18] MEDS: Docusate 100 MG CAP PO SCH ×2 (08:36→20:50)
--- NOTE | 2017-04-18 12:32 | PDOC.PN ---
- Subjective Encounter Start Date: 04/18/17 Encounter Start Time: 12:31 Patient seen and examined. No new complaints. No overnight events - Objective Resuscitation Status: Resuscitation Status FULL:Full Resuscitation MAR Reviewed: Yes Vital Signs & Weight: Vital Signs (12 hours) Temp Pulse Resp BP Pulse Ox 04/18/17 11:37 117/73 04/18/17 08:55 98 F 78 18 149/105 H 93 L 04/18/17 08:00 98 F 78 18 Weight Admit Weight 242 lb Weight 242 lb I&O: 04/17/17 04/18/17 04/19/17 06:59 06:59 06:59 Intake Total 960 1780 Balance 960 1780 Result Diagrams: 04/18/17 01:58 04/17/17 16:51 Additional Labs: Accuchecks 04/18/17 04/18/17 04/17/17 11:18 05:30 21:23 POC Glucose 135 H 128 H 182 H 04/17/17 04/14/17 16:33 15:52 POC Glucose 120 H 156 H Phys Exam - Physical Examination Constitutional: NAD HEENT: PERRLA Neck: no JVD Respiratory: no wheezing Cardiovascular: no significant murmur Gastrointestinal: non-tender Musculoskeletal: pulses present erythema better Neurological: normal sensation Dx/Plan (1) Cellulitis of right lower extremity Code(s): L03.115 - CELLULITIS OF RIGHT LOWER LIMB Status: Acute Comment: Zosyn and Vancomycin since 04/10/2017 PM (2) Anxiety and depression Code(s): F41.9 - ANXIETY DISORDER, UNSPECIFIED; F32.9 - MAJOR DEPRESSIVE DISORDER, SINGLE EPISODE, UNSPECIFIED Status: Chronic (3) DM2 (diabetes mellitus, type 2) Status: Chronic Qualifiers: Diabetes mellitus complication status: without complication Diabetes mellitus director long term care insulin use: with [facility] use Qualified Code(s): E11.9 - Type 2 diabetes mellitus without complications; Z79.4 - terminal operations manager (current) use of insulin; Z79.4 - [facility] (current) use of insulin; Z79.4 - [facility] ( current) use of insulin; Z79.4 - terminal operations manager (current) use of insulin (4) HLD (hyperlipidemia) Code(s): E78.5 - HYPERLIPIDEMIA, UNSPECIFIED Status: Chronic (5) HTN (hypertension) Code(s): I10 - ESSENTIAL (PRIMARY) HYPERTENSION Status: Chronic (6) Hypothyroidism Code(s): E03.9 - HYPOTHYROIDISM, UNSPECIFIED Status: Chronic (7) Morbid obesity with BMI of 40.0-44.9, adult Code(s): E66.01 - MORBID (SEVERE) OBESITY DUE TO EXCESS CALORIES; Z68.41 - BODY MASS INDEX (BMI) 40.0-44.9, ADULT Status: Chronic - Plan * Cellultis- much improved- will change the antibiotics to Keflex * DM- blood glucose is stable * AFIB- heart rate is controlled * HTN - blood pressure is stable * case mx to help with placement
--- NOTE | 2017-04-18 12:34 | PDOC.PN ---
- Subjective Encounter Start Date: 04/17/17 Encounter Start Time: 12:33 Patient seen and examined. No new complaints. No overnight events - Objective Resuscitation Status: Resuscitation Status FULL:Full Resuscitation MAR Reviewed: Yes Vital Signs & Weight: Vital Signs (12 hours) Temp Pulse Resp BP Pulse Ox 04/18/17 11:37 117/73 04/18/17 08:55 98 F 78 18 149/105 H 93 L 04/18/17 08:00 98 F 78 18 Weight Admit Weight 242 lb Weight 242 lb I&O: 04/17/17 04/18/17 04/19/17 06:59 06:59 06:59 Intake Total 960 1780 Balance 960 1780 Result Diagrams: 04/18/17 01:58 04/17/17 16:51 Additional Labs: Accuchecks 04/18/17 04/18/17 04/17/17 11:18 05:30 21:23 POC Glucose 135 H 128 H 182 H 04/17/17 04/14/17 16:33 15:52 POC Glucose 120 H 156 H Phys Exam - Physical Examination Constitutional: NAD HEENT: PERRLA Neck: no JVD Respiratory: no wheezing Cardiovascular: no significant murmur Gastrointestinal: non-tender Musculoskeletal: pulses present erythema better Neurological: normal sensation Dx/Plan (1) Cellulitis of right lower extremity Code(s): L03.115 - CELLULITIS OF RIGHT LOWER LIMB Status: Acute Comment: Zosyn and Vancomycin since 04/10/2017 PM (2) Anxiety and depression Code(s): F41.9 - ANXIETY DISORDER, UNSPECIFIED; F32.9 - MAJOR DEPRESSIVE DISORDER, SINGLE EPISODE, UNSPECIFIED Status: Chronic (3) DM2 (diabetes mellitus, type 2) Status: Chronic Qualifiers: Diabetes mellitus complication status: without complication Diabetes mellitus intermediate project manager insulin use: with care home use Qualified Code(s): E11.9 - Type 2 diabetes mellitus without complications; Z79.4 - terminal supervisor (current) use of insulin; Z79.4 - [facility] (current) use of insulin; Z79.4 - [facility] ( current) use of insulin; Z79.4 - terminal supervisor (current) use of insulin (4) HLD (hyperlipidemia) Code(s): E78.5 - HYPERLIPIDEMIA, UNSPECIFIED Status: Chronic (5) HTN (hypertension) Code(s): I10 - ESSENTIAL (PRIMARY) HYPERTENSION Status: Chronic (6) Hypothyroidism Code(s): E03.9 - HYPOTHYROIDISM, UNSPECIFIED Status: Chronic (7) Morbid obesity with BMI of 40.0-44.9, adult Code(s): E66.01 - MORBID (SEVERE) OBESITY DUE TO EXCESS CALORIES; Z68.41 - BODY MASS INDEX (BMI) 40.0-44.9, ADULT Status: Chronic - Plan * Cellultis- much improved- will change the antibiotics to Keflex * DM- blood glucose is stable * AFIB- heart rate is controlled * HTN - blood pressure is stable * case mx to help with placement
[2017-04-18] MEDS: Acetaminophen 325 MG TAB PO PRN (13:35)
[2017-04-18] MEDS: HumaLOG 300 UNITS/3 ML VIAL SC PRN (17:15)
[2017-04-18] MEDS: Rivaroxaban 10 MG TAB PO SCH (17:15)
[2017-04-18] MEDS: Atorvastatin Calcium 10 MG TAB PO SCH (20:50)
[2017-04-18 21:01] VITALS: TEMP 98.3
[2017-04-18] MEDS: Temazepam 15 MG CAP PO PRN (22:08)
[2017-04-19] MEDS: Vancomycin HCl 1.75 GM in Sodium Chloride 0.9% 500 ML IVPB SCH (03:05)
[2017-04-19] MEDS: Levothyroxine 175 MCG TAB PO SCH (05:30)
[2017-04-19 06:07] LABS: Hemoglobin 9.8 g/dL (12.0-16.0); Platelet Count 295 thou/uL (130-400)
[2017-04-19 08:14] VITALS: BP 164/104
[2017-04-19] MEDS: Amoxicillin/Potassium Clav 875 MG TAB PO SCH (08:44)
[2017-04-19] MEDS: Spironolactone 25 MG TAB PO SCH (08:45)
[2017-04-19] MEDS: Carvedilol 6.25 MG TAB PO SCH (08:45)
[2017-04-19] MEDS: Escitalopram Oxalate 10 mg Tablet PO SCH (08:45)
[2017-04-19] MEDS: Famotidine 20 MG TAB PO SCH (08:45)
[2017-04-19] MEDS: Furosemide 40 MG TAB PO SCH (08:45)
[2017-04-19] MEDS: Docusate 100 MG CAP PO SCH (08:45)
[2017-04-19] MEDS: Ferrous Sulfate 325 MG TAB PO SCH (08:45)
--- NOTE | 2017-04-19 13:32 | PDOC.PN ---
- Subjective Encounter Start Date: 04/19/17 Encounter Start Time: 13:31 Patient seen and examined. No new complaints. No overnight events - Objective Resuscitation Status: Resuscitation Status FULL:Full Resuscitation MAR Reviewed: Yes Vital Signs & Weight: Vital Signs (12 hours) Temp Pulse Resp BP BP Pulse Ox 04/19/17 08:45 164/104 H 04/19/17 08:00 98.3 F 78 20 164/104 H 93 L Weight Admit Weight 242 lb Weight 242 lb I&O: 04/18/17 04/19/17 04/20/17 06:59 06:59 06:59 Intake Total 1780 1608 240 Balance 1780 1608 240 Result Diagrams: 04/19/17 05:28 04/17/17 16:51 Additional Labs: Accuchecks 04/19/17 04/19/17 04/18/17 11:27 04:23 20:26 POC Glucose 145 H 160 H 242 H 04/18/17 16:18 POC Glucose 158 H Phys Exam - Physical Examination Constitutional: NAD HEENT: PERRLA Neck: no nodes Respiratory: no rales Cardiovascular: no significant murmur Gastrointestinal: non-tender Musculoskeletal: pulses present erythema resolved Neurological: moves all 4 limbs Psychiatric: A&O x 3 Dx/Plan (1) Cellulitis of right lower extremity Code(s): L03.115 - CELLULITIS OF RIGHT LOWER LIMB Status: Acute Comment: Zosyn and Vancomycin since 04/10/2017 PM (2) Anxiety and depression Code(s): F41.9 - ANXIETY DISORDER, UNSPECIFIED; F32.9 - MAJOR DEPRESSIVE DISORDER, SINGLE EPISODE, UNSPECIFIED Status: Chronic (3) DM2 (diabetes mellitus, type 2) Status: Chronic Qualifiers: Diabetes mellitus complication status: without complication Diabetes mellitus [facility] insulin use: with tank terminal gauger use Qualified Code(s): E11.9 - Type 2 diabetes mellitus without complications; Z79.4 - assistant terminal manager (current) use of insulin; Z79.4 - assistant terminal manager (current) use of insulin; Z79.4 - prison ( current) use of insulin; Z79.4 - prison (current) use of insulin (4) HLD (hyperlipidemia) Code(s): E78.5 - HYPERLIPIDEMIA, UNSPECIFIED Status: Chronic (5) HTN (hypertension) Code(s): I10 - ESSENTIAL (PRIMARY) HYPERTENSION Status: Chronic (6) Hypothyroidism Code(s): E03.9 - HYPOTHYROIDISM, UNSPECIFIED Status: Chronic (7) Morbid obesity with BMI of 40.0-44.9, adult Code(s): E66.01 - MORBID (SEVERE) OBESITY DUE TO EXCESS CALORIES; Z68.41 - BODY MASS INDEX (BMI) 40.0-44.9, ADULT Status: Chronic - Plan * doing well * d/c to lampstand
--- NOTE | 2017-04-19 14:02 | DIS ---
DATE OF ADMISSION: 04/10/2017 DATE OF DISCHARGE: 04/19/2017 DISCHARGE DIAGNOSES: 1. Right leg cellulitis, resolved. 2. Atrial fibrillation, stable. 3. Diabetes mellitus, stable. 4. Hypertension, stable. 5. Hyperlipidemia, stable. 6. Rheumatoid arthritis, stable. 7. Congestive heart failure, stable. 8. History of lymphoma, stable. DISCHARGE MEDICATIONS: The patient's discharge medications include all home medications plus Augment in 875 mg p.o. b.i.d. for 7 more doses. DISPOSITION: To [facility] physical therapy. BRIEF HOSPITAL COURSE: An 81-year-old pleasant lady came in with pain and swelling of the right leg. Please refer to the admitting physician's H&P for further details. She had a Doppler of the right lower extremity that was negative for clot. She was diagnosed with cellulitis, put on IV antibiotic. She has resolved with this treatment. Blood cultures were negative. The patient right now is medi sandy stable to be discharged with outpatient follow up with discharge to the usp facilit y and is asked to follow up with the PCP upon discharge from there. She understands all this. She i s asked to come back to the emergency room in case symptoms recur. Total time for this discharge took 35 minutes.
== END 2017-04-19 16:08 | DRG 603 ==
LOC: ERS 14:56 → T4-B 21:06
PROVIDERS: ADMIT Family Medicine; ATTEND Family Medicine
DX: L03.115 Cellulitis of right lower limb (principal); I48.91 Unspecified atrial fibrillation; I11.0 Hypertensive heart disease with heart failure; I50.9 Heart failure, unspecified; E66.01 Morbid (severe) obesity due to excess calories; B95.62 Methicillin resistant Staphylococcus aureus infection as the cause of diseases classified elsewhere; E11.9 Type 2 diabetes mellitus without complications; Z68.41 Body mass index [BMI] 40.0-44.9, adult; E78.5 Hyperlipidemia, unspecified; M06.9 Rheumatoid arthritis, unspecified; Z79.01 Long term (current) use of anticoagulants; Z85.72 Personal history of non-Hodgkin lymphomas; Z82.3 Family history of stroke; Z80.8 Family history of malignant neoplasm of other organs or systems; F32.9 Major depressive disorder, single episode, unspecified; F41.9 Anxiety disorder, unspecified
CPT/HCPCS: 36415; 36416; 51701; 80048; 80053; 80202; 81003; 82550; 82553; 83605; 83880; 84484; 85014; 85018; 85025; 85049; 87040; 87149; 96365; 96375; A4353; G8981-GP-CJ; G8982-GP-CI; G8987-GO-CM; G8988-GO-CK; J2270; J2405; J2543; J3370; J7050

== ENCOUNTER 2018-05-05 15:22 | Observation (INO) | payer MEDICARE ==
[~2018-05-05 15:22] MED LIST: ISOVUE-370 76%-LOCM 1 ML ONE
[2018-05-05] MEDS ORDERED: Morphine 4 MG/ML VIAL ONE (16:32)
[2018-05-05] MEDS ORDERED: Ondansetron PF 4 MG/2 ML Vial ONE (16:32)
[2018-05-05 16:34] LABS: #Eosinphils 0.5 thou/uL (0.0-0.7); #Lymphocytes 0.8 thou/uL (1.20-3.40); #Monocytes 0.4 thou/uL (0.11-0.59); #Neutrophils 4.5 thou/uL (1.40-6.50); %Basophils 0.5 % (0.0-1.0); %Lymphocytes 12.5 % (21.0-51.0); %Monocytes 6.1 % (0.0-10.0); %Neutrophils 72.9 % (42.0-75.0); Hemoglobin 12.2 g/dL (12.0-16.0); Mean Corpuscular HGB CONC 32.2 g/dL (32.0-36.0); Mean Corpuscular Hemoglobin 30.8 pg (27.0-31.0); Mean Corpuscular Volume 95.8 fL (78.0-98.0); Mean Platelet Volume 8.1 fL (7.4-10.4); Platelet Count 208 thou/uL (130-400); RBC Distribution Width 13.3 % (11.5-14.5); Red Blood Cell (RBC) Count 3.96 mill/uL (4.20-5.40); White Blood Cell (WBC) Count 6.2 thou/uL (4.8-10.8)
[2018-05-05] MEDS ORDERED: HYDROcodone/Acetaminophen 5/325 mg Tablet ONE (16:48)
[2018-05-05 16:55] LABS: ALT (SGPT) Less than 7 U/L (8-55); AST (SGOT) 13 U/L (5-34); Albumin 3.6 g/dL (3.4-4.8); Alkaline Phosphatase 51 U/L (40-150); Anion Gap 20 mmol/L (10-20); BUN (Urea Nitrogen) 18 mg/dL (9.8-20.1); Bilirubin, Total 0.4 mg/dL (0.2-1.2); Calc. Creatinine Clearance 0 mL/min (70-130); Calcium 10.1 mg/dL (7.8-10.44); Carbon Dioxide 19 mmol/L (23-31); Chloride 105 mmol/L (98-107); Estimated GFR-MDRD 48; Globulin 3.3 g/dL (2.4-3.5); Glucose 120 mg/dL (83-110); Lipase 23 U/L (8-78); Potassium 4.9 mmol/L (3.5-5.1); Protein, Total 6.9 g/dL (6.0-8.3); Sodium 139 mmol/L (136-145)
--- NOTE | 2018-05-05 16:56 | RAD ---
PORTABLE AP CHEST X-RAY: 05/05/2018 HISTORY: Left upper back pain with onset of symptoms one week ago. Symptoms are worse today. The patient rep orts nausea and vomiting. COMPARISON: 11/06/2016 IMPRESSION: The cardiac silhouette is magnified by projection. There is prominence of hilar structures bilateral ly, which is a stable finding and is probably related to prominence of the central pulmonary vasculat ure. There is a pulmonary nodule overlying the medial right upper lobe/lung apex. A pulmonary nodul e is seen in the posterior right upper lobe on prior exam in [address] examination demons trated no hypermetabolic activity within this nodule. There is minimal linear scarring versus atelec tasis in the right mid lung zone, with atelectasis at the left lung base. The lungs are otherwise cl ear. There is bilateral glenohumeral osteoarthropathy. Vascular calcifications are seen in the thor acic aorta. IMPRESSION: 1. Stable pulmonary nodule, medial right upper long zone. 2. Atelectasis, left lung base. 3. Stable prominence of the hilar regions bilaterally, probably related to prominence of the pulmona ry vasculature. 4. No acute cardiopulmonary process. POS: [facility]
[2018-05-05 17:28] LABS: Bilirubin Negative (Negative); Blood, Urine Trace (Negative); Clarity CLOUDY (Clear); Glucose, Urine (Dipstick) Negative (Negative); Leukocyte Negative (Negative); Nitrite Negative (Negative); Protein, Urine (Dipstick) Negative (Neg-Trace); Specific Gravity, Urine 1.011 (1.002-1.036); Urobilinogen 0.2 mg/dL (0.2-1.0)
[2018-05-05 17:30] LABS: Bacteria/HPF None Seen HPF (None Seen); Pathc Cast-AUWi Flag 3.34 (0-2.49); RBC/HPF 0-3 HPF (0-3); Squamous Epithelial 0-3 HPF (0-3); WBC/HPF 0-3 HPF (0-3)
[2018-05-05 17:38] LABS: Hyaline Casts/LPF NONE SEEN LPF (0-3 Hyaline); Manual Microscopic Reviewed? No Path Casts Seen
--- NOTE | 2018-05-05 18:19 | CT ---
CT ABDOMEN AND PELVIS WITH IV CONTRAST: 05/05/2018 HISTORY: Left-sided back pain with nausea. COMPARISON: PET CT scan examination on 10/09/2015. FINDINGS: The heart is mildly enlarged. Vascular calcifications are seen in the visualized thoracic aorta, as well as the coronary arteries, and involving the abdominal aorta and iliac arteries. A small right pleural effusion and atelectasis are present. Multiple enlarged, as well as increased number, lymph nodes are seen in the aortocaval region. The l argest lymph node is seen just inferior to the aortic bifurcation, which measures approximately 3.4 c m in short axis dimension. However, several additional enlarged lymph nodes are seen in the aortocav al region, with the left periaortic lymph node measuring 2.4 cm in short axis dimension and an aortoc aval lymph node measuring 2.3 cm in short axis dimension. There is inflammatory stranding seen in an aortocaval region, adjacent to the lymph nodes, as well as at the lateral aspect of the lower quadra nts of the abdomen bilaterally. Calcified granulomata are seen in the spleen. The liver, pancreas, bilateral adrenal glands, and kidneys demonstrate a normal CT appearance. The urinary bladder is mostly decompressed and also partially obscured due to artifact from a left to rafael hip prosthesis. The uterus does appear larger in size compared to the PET CT exam of 2016 as well as larger in size c ompared to a CT exam in 2014. In addition, there is a low attenuation area seen within the uterus wi th associated punctate calcifications. While this may be related to the endometrium, it appears slig htly eccentrically located. There are enlarged pelvic lymph nodes as well seen along the iliac chains bilaterally. The largest l ymph node, right iliac chain, measures 2 cm in short axis dimension and, on the left, measures 1.4 cm in short axis dimension. There are enlarged inguinal lymph nodes bilaterally, with the largest lymp h node seen on the left, which measures 2.4 cm in short axis dimension. There is colonic diverticulosis. Dense vascular calcifications are seen in the abdominal aorta and iliac arteries. Multilevel degenerative changes are seen in the spine. 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 IMPRESSION: 1. Aortocaval, pelvic, and inguinal lymphadenopathy. Findings may be related to lymphoma, but metas tatic disease is a possibility. 2. Areas of inflammatory stranding in regions of lymphadenopathy within the abdomen and pelvis. 3. Prominence of the uterus. The uterus does appear more prominent than on prior examinations. In addition, there is a low density area within the central uterus, which may potentially be within the endometrial canal, but there are also associated punctate calcifications. A nonemergent pelvic ultra sound is recommended for further evaluation. 4. Small right pleural effusion. 5. Mild cardiomegaly. 6. Colonic diverticulosis. 7. Tiny amount of free fluid in the pelvis. 8. Question of mildly prominent right infrahilar, as well as posterior mediastinal, lymph nodes, whi ch are incompletely imaged or evaluated. 9. Multilevel degenerative changes involving the osseous structures, but no lytic or sclerotic osseo us lesion is identified. CODE T POS: [facility]
[2018-05-05] MEDS ORDERED: Acetaminophen 325 MG TAB PO PRN (20:21)
[2018-05-05 20:27] LABS: Lactic Acid 2.3 mmol/L (0.5-2.2)
[2018-05-05] MEDS ORDERED: Carvedilol 6.25 MG TAB PO SCH (21:00)
[2018-05-05] MEDS ORDERED: Dextrose 50% Abboject 50 ML SYRINGE SLOW IVP PRN (21:37)
[2018-05-05] MEDS ORDERED: Dextrose 5% in Water 1,000 ML IV PRN (21:37)
[2018-05-05] MEDS ORDERED: Insulin Regular 300 UNITS/3 ML VIAL SC PRN (21:37)
[2018-05-05 21:40] VITALS: BMI 38.3
[2018-05-05] MEDS ORDERED: Carvedilol 3.125 MG TAB PO SCH (23:00)
[2018-05-05] MEDS ORDERED: Rivaroxaban 10 MG TAB PO SCH (23:00)
[2018-05-05] MEDS: Pravastatin Sodium 40 MG TAB PO SCH (23:05)
[2018-05-05] MEDS: Temazepam 15 MG CAP PO PRN (23:06)
[2018-05-06] MEDS: HYDROcodone/Acetaminophen 5/325 mg Tablet PO PRN ×2 (00:22→12:01)
[2018-05-06] MEDS: PROVENTIL INHALER 6.7 G (200 INHALATIONS) INH PRN ×3 (03:36→19:12)
[2018-05-06 05:07] LABS: #Eosinphils 0.6 thou/uL (0.0-0.7); #Lymphocytes 0.9 thou/uL (1.20-3.40); #Monocytes 0.5 thou/uL (0.11-0.59); #Neutrophils 3.3 thou/uL (1.40-6.50); %Basophils 0.8 % (0.0-1.0); %Eosinophils 10.4 % (0.0-10.0); %Lymphocytes 17.3 % (21.0-51.0); %Monocytes 9.4 % (0.0-10.0); %Neutrophils 62.2 % (42.0-75.0); Hemoglobin 11.1 g/dL (12.0-16.0); Mean Corpuscular HGB CONC 30.4 g/dL (32.0-36.0); Mean Corpuscular Hemoglobin 30.2 pg (27.0-31.0); Mean Corpuscular Volume 99.3 fL (78.0-98.0); Mean Platelet Volume 8.6 fL (7.4-10.4); Platelet Count 201 thou/uL (130-400); RBC Distribution Width 13.3 % (11.5-14.5); Red Blood Cell (RBC) Count 3.67 mill/uL (4.20-5.40); White Blood Cell (WBC) Count 5.3 thou/uL (4.8-10.8)
[2018-05-06 05:08] LABS: Anion Gap 15 mmol/L (10-20); BUN (Urea Nitrogen) 16 mg/dL (9.8-20.1); Calc. Creatinine Clearance 68 mL/min (70-130); Calcium 9.7 mg/dL (7.8-10.44); Carbon Dioxide 22 mmol/L (23-31); Chloride 108 mmol/L (98-107); Estimated GFR-MDRD 52; Glucose 110 mg/dL (83-110); Potassium 4.6 mmol/L (3.5-5.1); Sodium 140 mmol/L (136-145)
[2018-05-06] MEDS: Levothyroxine 175 MCG TAB PO SCH (05:41)
[2018-05-06] MEDS: Spironolactone 25 MG TAB PO SCH (08:19)
[2018-05-06] MEDS: Furosemide 40 MG TAB PO SCH (08:20)
[2018-05-06] MEDS: Carvedilol 3.125 MG TAB PO SCH ×2 (08:20→20:27)
[2018-05-06] MEDS: Escitalopram Oxalate 10 mg Tablet PO SCH (08:20)
[2018-05-06] MEDS: Potassium Chloride 20 MEQ TAB PO SCH (08:20)
[2018-05-06] MEDS: Ferrous Sulfate 325 MG TAB PO SCH (08:20)
[2018-05-06] MEDS ORDERED: Enoxaparin Sodium 40 MG/0.4 ML SYRINGE SC SCH (09:00)
[2018-05-06] MEDS ORDERED: ISOVUE-370 76%-LOCM 1 ML ONE (16:56)
[2018-05-06] MEDS: Rivaroxaban 10 MG TAB PO SCH (17:08)
--- NOTE | 2018-05-06 18:41 | PDOC.PN ---
- Subjective Encounter Start Date: 05/06/18 Encounter Start Time: 18:39 Patient lying in bed, she reports back pain improved. Denies chest pain or shortness of breath. Oncology consulted due to concern for lymphoma. - Objective Resuscitation Status - Order Detail: 05/05/18 20:21 Resuscitation Status Routine Resuscitation Status: FULL: Full Resuscitation MAR Reviewed: Yes Vital Signs & Weight: Vital Signs (12 hours) Temp Pulse Resp BP Pulse Ox 05/06/18 15:20 98.4 F 93 20 110/56 L 95 05/06/18 11:36 93 L 05/06/18 11:34 98.4 F 103 H 20 128/61 80 L 05/06/18 07:19 97.6 F 98 24 H 119/65 95 Weight Weight 223 lb 8 oz I&O: 05/05/18 05/06/18 05/07/18 06:59 06:59 06:59 Intake Total 490 700 Balance 490 700 Result Diagrams: 05/06/18 04:11 05/06/18 04:11 Additional Labs: Accuchecks 05/06/18 05/06/18 05/05/18 16:51 11:41 22:32 POC Glucose 165 H 126 H 95 Radiology Reviewed by me: Yes Phys Exam - Physical Examination Constitutional: NAD HEENT: PERRLA, moist MMs, oral pharynx no lesions Neck: no nodes, no JVD, supple Respiratory: no wheezing, no rales, no rhonchi, clear to auscultation bilateral Cardiovascular: RRR, no significant murmur, no rub Gastrointestinal: soft, non-tender, no distention, positive bowel sounds obese Musculoskeletal: no edema, pulses present Neurological: non-focal, normal sensation, moves all 4 limbs Lymphatic: no nodes Psychiatric: normal affect, A&O x 3 Skin: no rash, normal turgor, cap refill <2 seconds Dx/Plan (1) Back pain Code(s): M54.9 - DORSALGIA, UNSPECIFIED Status: Acute (2) Lymphoma Status: Acute (3) DM2 (diabetes mellitus, type 2) Status: Chronic Qualifiers: (4) HLD (hyperlipidemia) Code(s): E78.5 - HYPERLIPIDEMIA, UNSPECIFIED Status: Chronic (5) HTN (hypertension) Code(s): I10 - ESSENTIAL (PRIMARY) HYPERTENSION Status: Chronic - Plan cont current plan of care * Continue medical management * Oncology following and appreciate recommendations * Await further workup for possible return of lymphoma * Home medications * Monitor vitals, labs and accucheks * Continue sliding scale
--- NOTE | 2018-05-06 19:32 | CT ---
CT CHEST: 05/06/2018 HISTORY: Lymphoma. Assess lymphadenopathy. COMPARISON: 09/28/2015 TECHNIQUE: Axial CT imaging at 5 mm intervals, from the thoracic inlet through the upper abdomen, with IV contra st. Coronal reformatted imaging obtained. FINDINGS: Bilateral axillary lymphadenopathy noted, measuring up to 1.7 cm in short axis dimension on the right , new. Enlarged nodes in the left axilla are also new and measure up to 1.6 cm in short axis dimensi on. Extensive mediastinal lymphadenopathy is noted, including a right paratracheal lymph node measuring u p to 2.6 cm, new, new subcarinal lymphadenopathy, measuring up to 3.4 cm, and new lymphadenopathy in the bilateral hilar regions, measuring up to 1.6 cm in short axis dimension on the left and 2 cm in s hort axis dimension on the right. Numerous additional enlarged superior mediastinal lymph nodes are present, all of which are new when compared to the prior examination. Trace new pleural fluid noted on the left. Small, new, mildly lobulated/possibly loculated pleural e ffusion on the right. There is a new right upper lobe pulmonary nodule anteriorly, on image 19, measuring 6 mm. There is a stable pulmonary nodule posteriorly, within the right upper lobe, measuring 1.7 cm. The imaged upper abdomen was better assessed on the 05/05/[address] examination. Imaged uppe r abdomen demonstrates extensive, incompletely assessed retroperitoneal lymphadenopathy. There is al so retrocrural lymphadenopathy. Please refer to CT abdomen/pelvis report for full assessment. Revie w of the osseous structures of the chest demonstrate osteopenia with multilevel degenerative change. IMPRESSION: Extensive new lymphadenopathy, including the mediastinum, the bilateral hilar, and the bilateral axil denis regions. New pleural fluid, right greater than left. There is a stable posterior right upper l obe pulmonary nodule and a new pulmonary nodule in the right upper lobe, anteriorly. These findings may be on the basis of lymphoma or metastatic disease. POS: [facility]
[2018-05-06] MEDS: Pravastatin Sodium 40 MG TAB PO SCH (20:27)
[2018-05-06] MEDS: Temazepam 15 MG CAP PO PRN (20:27)
--- NOTE | 2018-05-07 00:12 | CON ---
DATE OF CONSULTATION: REASON FOR CONSULT: Lymphoma. HISTORY OF PRESENT ILLNESS: Ms. Hernandez is a pleasant 82-year-old female with a history of diffuse large B-cell lymphoma diagnosed in 2013. She underwent 6 cycles of chemotherapy and has not returned to our clinic since that time. She did have a PET scan done in 2016, ordered by her primary care, which showed no evidence of disease. She presented to the emergency room this morning with new onset of left-sided back pain. She underwent CT scan of the abdomen and pelvis, which showed multiple enlarged lymph nodes in the aortocaval region. The largest node was 3.4 cm at the aortic bifurcation. There was a left para-aortic lymph node measuring 2.4 cm. Uterus was slightly larger than the PET scan of 2016. There were also enlarged pelvic lymph nodes and iliac chain lymph nodes bilaterally, largest measuring 2 cm. There was enlarged left inguinal lymph node measuring 2.4 cm. The patient was admitted for further workup. The patient denies any night sweats or weight loss. She states she has been in her usual state of health. She was recently admitted for cellulitis of her left arm. She completed a course of antibiotics with improvement in infection. She denies any rash or pruritus. The patient lives with her son. She states that she rarely walks. Her son cares for her and performs her ADLs. PAST MEDICAL HISTORY: 1. Diffuse large B-cell lymphoma in 2013. 2. Diabetes mellitus 2. 3. Atrial fibrillation. 4. Hypertension. 5. High cholesterol. 6. Rheumatoid arthritis. 7. Asthma. 8. Morbid obesity. 9. Anxiety and depression. 10. Hypothyroidism. PAST SURGICAL HISTORY: 1. Pleural space chest tube placement in 2013. 2. Pericardial window. 3. Multiple orthopedic surgeries. ALLERGIES: NO KNOWN DRUG ALLERGIES. HOME MEDICATIONS: 1. Coreg 3.125 mg p.o. b.i.d. 2. Lexapro daily. 3. Furosemide daily. 4. Levothyroxine 175 mcg daily. 5. Metformin 1000 mg b.i.d. 6. Protonix 40 mg daily. 7. Potassium chloride 10 mEq daily. 8. Pravachol daily. 9. Temazepam p.r.n. 10. Spironolactone daily. 11. Xarelto 20 mg daily. FAMILY HISTORY: Mother had cervical cancer. Father had a brain tumor. Has a child with ovarian cancer. SOCIAL HISTORY: , lives with her son. No alcohol, tobacco, or illicit drug use. REVIEW OF SYSTEMS: Ten-point review of systems is negative except for noted in HPI. PHYSICAL EXAMINATION: GENERAL: Obese female in no acute distress. HEENT: Normocephalic, atraumatic. Pupils equal and reactive to light. NECK: Supple without mass. No thyromegaly. CV: Regular rate and rhythm. LUNGS: Clear to auscultation. ABDOMEN: Obese, nontender. Bowel sounds are positive. EXTREMITIES: No clubbing, cyanosis, or edema. SKIN: No rash. HEMATOLOGICAL: No petechiae or purpura. She does have scattered bruising on her arms. LYMPH: She has a palpable lymph node in her left inguinal area. NEUROLOGICAL: Nonfocal. PSYCH: The patient is alert, oriented, and appropriate. PERTINENT LABS AND X-RAYS: Current WBCs are 5.3, hemoglobin 11.1, hematocrit 36.4, platelet count is 201,000, 62% neutrophils, 17% lymphocytes. Sodium 140, potassium 4.6, chloride 108, CO2 is 22, BUN is 16, creatinine 1.01. Lactic acid is 2.3, calcium 9.7, total bilirubin is 0.4, AST is 13, ALT is less than 7, alkaline phosphatase is 51, LDH is 322. Serum total protein is 6.9, albumin 3.3, globulin 3.6. Radiology per HPI. ASSESSMENT: 1. New abdominal lymphadenopathy. 2. History of diffuse large B-cell lymphoma. DISCUSSION: Case was discussed with Dr. Covington. The patient will have a flow cytometry of peripheral blood. We will check a CT of her chest with contrast. She has a poor performance status with an ECOG of 3. Will scan her chest today. Further workup will be done in the outpatient setting. Thank you for the consult. Job ID: [id number] MTDD
[2018-05-07] MEDS: Ondansetron PF 4 MG/2 ML Vial IVP PRN ×3 (03:26→15:16)
[2018-05-07] MEDS: Levothyroxine 175 MCG TAB PO SCH (05:38)
--- NOTE | 2018-05-07 08:01 | HP ---
PRIMARY CARE DOCTOR: Gretchen Pearson MD CODE STATUS: Full code. TIME OF EVALUATION: 7:30 p.m. CHIEF COMPLAINT: Back pain on the left side. HISTORY OF PRESENT ILLNESS: This is an 82-year-old female patient with past medical history of lymphoma treated by Dr. Covington, two years ago. She reported she was in remission, came to the hospital with left-sided back pain. The pain has been there for 2 weeks now, that has started insidiously and is gradually getting worse. It is severe with no clear triggers, no alleviating factors. Also, it might be worsened with movement. She reported she had the same pain when she was diagnosed with lymphoma and at that time was on the right side. CT scan was done in the ED and it showed the patient has some lymph nodes in the same side. REVIEW OF SYSTEMS: CONSTITUTIONAL: The patient has no fever, no chills. The patient does have generalized weakness. RESPIRATORY: No cough, sputum production, or shortness of breath. CARDIOVASCULAR: No chest pain or palpitations. MUSCULOSKELETAL: The patient has left-sided back pain in thoracic area as discussed in HPI. CARDIOVASCULAR: No chest pain or palpitations. GASTROINTESTINAL: No nausea. No vomiting. No diarrhea. No abdominal pain. TELECOMMUNICATIONS REPAIRER: No dizziness, headache, or feeling lightheaded. GENITOURINARY: No burning on urination. EXTREMITIES: No leg swelling. All other systems were reviewed and negative except for the findings mentioned above. PAST MEDICAL HISTORY: The patient is reported to have a lymphoma, was treated with chemotherapy by Dr. Covington, hypothyroidism, atrial fibrillation on chronic anticoagulation, type 2 diabetes, hypertension, rheumatoid arthritis, obesity, CHF, COPD. PAST SURGICAL HISTORY: Reviewed. The patient has pericardial window in the past, orthopedic surgery, left knee replacement, breast biopsy, gastric graft. PSYCHIATRIC HISTORY: Depression. SOCIAL HISTORY: No alcohol. No drugs. No smoking history. FAMILY HISTORY: Reviewed and noncontributory to current presentation. KNOWN ALLERGIES: No known drug allergies reported. MEDICATIONS: 1. Levothyroxine. 2. Metformin. 3. Pantoprazole. 4. Spironolactone. 5. Escitalopram. 6. Xarelto. 7. Temazepam. 8. Furosemide. 9. Pravastatin. 10. Ferrous sulfate. 11. Potassium chloride. 12. Carvedilol. PHYSICAL EXAMINATION: VITAL SIGNS: On presentation, the patient has blood pressure 160/95 with heart rate 82, respiratory rate 18, temperature 98.6, and oxygen saturation 95 on room air. GENERAL APPEARANCE: The patient is alert, oriented, in mild distress due to back pain. HEENT: Eyes; normal conjunctivae. Moist oral mucosa. Anicteric. No JVD. RESPIRATORY: Bilateral air entry. No rales. No wheezes. Symmetric expansion. CARDIOVASCULAR: Normal rate, regular rhythm. No murmurs. No gallops. No edema. ABDOMEN: Soft. Normal bowel sounds. MUSCULOSKELETAL: Left-sided chest and the back area is hurting. Baseline range of motion. No sternal tenderness. SKIN: Warm and intact. No pallor. No rash. No redness. Peripheral pulses are present. Capillary refill seems to be intact. NEUROLOGIC: No evidence of any new focal weakness, baseline speech. Cranial nerves seems to be intact. PSYCHIATRIC: The patient has good mood. No anxiety. Oriented, optimal judgment. DIAGNOSTIC DATA: 1. EKG was reviewed. The patient has atrial fibrillation at a rate of 84, QT corrected 408, low voltage QRS. Abdomen and pelvis CT was reviewed. The patient has aortocaval, pelvic, and inguinal lymphadenopathy, finding may be related to lymphoma, but metastatic disease is a possibility. 2. Areas of inflammatory stranding region of lymphadenopathy within the abdomen and pelvis. 3. Prominence of the uterus. The uterus does appear more prominent than the prior examinations. In addition, there is a low-density area of the central uterus, which may potentially be within endometrial canal, but there is also associated calcification. Nonemergent pelvic ultrasound is recommended for further evaluation. A small right pleural effusion, mild cardiomegaly, colonic diverticulosis, tiny amount of free fluid in the pelvis, question of mild prominent right infrahilar as well as posterior mediastinal lymph nodes, which are incompletely evaluated. lesion is identified. Chest x-ray was reviewed. Stable pulmonary nodule in the medial right upper lung zone, atelectesis left lung base. Stable prominence of the hilar region bilaterally, probably related to prominence of the pulmonary vasculature. No acute cardiopulmonary process. LABORATORY DATA: Reviewed. The patient has white count 6.2, hemoglobin 12.2, MCV 95.9, platelet count 208. Sodium 139, potassium 4.9, chloride 105, carbon dioxide 19, anion gap 20, BUN 19, creatinine 1.08, GFR 48, glucose 120, lactic acid 4.9, the second one was 203, calcium 10.1, total bilirubin 0.4, AST 30, and ALT less than 7. Troponin was negative. UA was negative. ASSESSMENT AND PLAN: The patient will be placed in the hospital with the following medical problems: 1. Left-sided thoracic chest pain considering the back, concurrently, we will treat symptomatically. The patient has a history of lymphoma, reported similar pain in the right side when she was at 2 years ago. The patient has multiple lymphadenopathies found on the CT studies and also prominence of the hilar region bilaterally in the thorax. Concern remains for regular lymphoma, we consulted Oncology for recommendations. 2. Lactic acidosis, etiology could be related to lymphoma. We will monitor. We will also rule out other etiologies including infection. We will send procalcitonin and we will send blood cultures. 3. Uncontrolled diabetes, this is mild. Blood sugar is 120, reconcile home medications. Place the patient on sliding scale for ultimate control. 4. History of congestive heart failure, this seems to be stable, chronic, reconcile home medications. We will adjust treatment as needed. 5. History of atrial fibrillation, rate is controlled. Reconcile home medications. This is chronic, stable. No need for any acute intervention. 6. Deep venous thrombosis prophylaxis. Job ID: [id number]
[2018-05-07] MEDS: Potassium Chloride 20 MEQ TAB PO SCH (08:03)
[2018-05-07] MEDS: Spironolactone 25 MG TAB PO SCH (08:03)
[2018-05-07] MEDS: Ferrous Sulfate 325 MG TAB PO SCH (08:03)
[2018-05-07] MEDS: Furosemide 40 MG TAB PO SCH (08:03)
[2018-05-07] MEDS: Carvedilol 3.125 MG TAB PO SCH ×2 (08:03→20:26)
[2018-05-07] MEDS: Escitalopram Oxalate 10 mg Tablet PO SCH (08:04)
[2018-05-07 09:28] LABS: Hemoglobin 11.3 g/dL (12.0-16.0); Platelet Count 192 thou/uL (130-400)
[2018-05-07] MEDS: HYDROcodone/Acetaminophen 5/325 mg Tablet PO PRN ×3 (10:35→22:32)
--- NOTE | 2018-05-07 16:34 | PDOC.EVN ---
Event Note - Event Note Event Note: discussed with Shira GANN, agree with management
[2018-05-07] MEDS: Rivaroxaban 10 MG TAB PO SCH (16:57)
--- NOTE | 2018-05-07 17:27 | PDOC.PN ---
- Subjective Encounter Start Date: 05/07/18 Encounter Start Time: 17:22 Patient lying in bed, she reports feeling weak and short of breath. Denies chest pain. She remains on oxygen 2.5L. Oncology following and concern for return of lymphoma. - Objective Resuscitation Status - Order Detail: 05/05/18 20:21 Resuscitation Status Routine Resuscitation Status: FULL: Full Resuscitation MAR Reviewed: Yes Vital Signs & Weight: Vital Signs (12 hours) Temp Pulse Pulse Pulse Resp BP BP 05/07/18 15:56 97.9 F 83 24 H 05/07/18 11:08 98.6 F 83 20 05/07/18 09:45 85 84 100/55 L 139/82 05/07/18 07:42 97.7 F 103 H 20 BP Pulse Ox 05/07/18 15:56 101/60 97 05/07/18 11:08 105/61 96 05/07/18 09:45 05/07/18 07:42 129/66 96 Weight Weight 223 lb 3.2 oz I&O: 05/06/18 05/07/18 05/08/18 06:59 06:59 06:59 Intake Total 490 1200 200 Balance 490 1200 200 Result Diagrams: 05/07/18 08:53 05/07/18 08:53 Additional Labs: Accuchecks 05/07/18 05/07/18 05/07/18 17:01 11:12 05:39 POC Glucose 114 H 168 H 149 H 05/06/18 16:51 POC Glucose 165 H Radiology Reviewed by me: Yes Phys Exam - Physical Examination Constitutional: NAD HEENT: PERRLA, oral pharynx no lesions Neck: no nodes, no JVD, supple Respiratory: no wheezing, no rales, no rhonchi, clear to auscultation bilateral Oxygen in place Cardiovascular: RRR, no significant murmur, no rub Gastrointestinal: soft, non-tender, positive bowel sounds Obese Musculoskeletal: no edema, pulses present Neurological: non-focal, normal sensation, moves all 4 limbs Lymphatic: no nodes Psychiatric: normal affect, A&O x 3 Skin: no rash, normal turgor, cap refill <2 seconds Dx/Plan (1) Back pain Code(s): M54.9 - DORSALGIA, UNSPECIFIED Status: Acute (2) Lymphoma Status: Acute (3) DM2 (diabetes mellitus, type 2) Status: Chronic Qualifiers: (4) HLD (hyperlipidemia) Code(s): E78.5 - HYPERLIPIDEMIA, UNSPECIFIED Status: Chronic (5) HTN (hypertension) Code(s): I10 - ESSENTIAL (PRIMARY) HYPERTENSION Status: Chronic - Plan cont current plan of care, PT/OT * Oncology following, concern for lymphoma return, will discuss treatment options * PT/OT recommending rehab vs SNF, consult for case management * Wean oxygen as tolerated, will require home O2 evaluation prior to discharge * Continue other home medications
[2018-05-07] MEDS: Pravastatin Sodium 40 MG TAB PO SCH (20:26)
[2018-05-07] MEDS: Temazepam 15 MG CAP PO PRN (22:32)
[2018-05-08] MEDS: PROVENTIL INHALER 6.7 G (200 INHALATIONS) INH PRN (05:45)
[2018-05-08] MEDS: Levothyroxine 175 MCG TAB PO SCH (05:58)
[2018-05-08] MEDS: Carvedilol 3.125 MG TAB PO SCH ×2 (10:00→20:03)
[2018-05-08] MEDS: Spironolactone 25 MG TAB PO SCH (10:00)
[2018-05-08] MEDS: Ferrous Sulfate 325 MG TAB PO SCH (10:00)
[2018-05-08] MEDS: Ondansetron PF 4 MG/2 ML Vial IVP PRN (10:00)
[2018-05-08] MEDS: Escitalopram Oxalate 10 mg Tablet PO SCH (10:01)
[2018-05-08] MEDS: Potassium Chloride 20 MEQ TAB PO SCH (10:01)
[2018-05-08] MEDS: Furosemide 40 MG TAB PO SCH (10:01)
--- NOTE | 2018-05-08 10:51 | PDOC.PN ---
- Subjective Encounter Start Date: 05/08/18 Encounter Start Time: 10:49 Patient lying in bed, no events over night. Not able to wean off oxygen. No chest pain or shortness of breath on oxygen via nasal cannula. Spoke with oncology and general surgery, plan for CT guided biopsy - Objective Resuscitation Status - Order Detail: 05/05/18 20:21 Resuscitation Status Routine Resuscitation Status: FULL: Full Resuscitation MAR Reviewed: Yes Vital Signs & Weight: Vital Signs (12 hours) Temp Pulse Resp BP Pulse Ox 05/08/18 08:19 82 20 97 05/08/18 08:05 98.1 F 95 29 H 134/61 96 05/08/18 05:45 77 20 99 05/08/18 05:31 98.4 F 93 22 H 129/64 97 Weight Weight 218 lb 11.2 oz I&O: 05/07/18 05/08/18 05/09/18 06:59 06:59 06:59 Intake Total 1200 1360 Balance 1200 1360 Result Diagrams: 05/07/18 08:53 05/07/18 08:53 Additional Labs: Accuchecks 05/08/18 05/07/18 05/07/18 05:57 20:55 17:01 POC Glucose 122 H 125 H 114 H 05/07/18 11:12 POC Glucose 168 H Radiology Reviewed by me: Yes Phys Exam - Physical Examination Constitutional: NAD HEENT: PERRLA, moist MMs, oral pharynx no lesions Neck: no nodes, no JVD, full ROM Coarse breath sounds Cardiovascular: RRR, no significant murmur, no rub Gastrointestinal: soft, non-tender, positive bowel sounds Musculoskeletal: no edema, pulses present Neurological: non-focal, normal sensation, moves all 4 limbs Psychiatric: normal affect, A&O x 3 Skin: no rash, normal turgor, cap refill <2 seconds Dx/Plan (1) Back pain Code(s): M54.9 - DORSALGIA, UNSPECIFIED Status: Acute (2) Lymphoma Status: Acute (3) DM2 (diabetes mellitus, type 2) Status: Chronic Qualifiers: (4) HLD (hyperlipidemia) Code(s): E78.5 - HYPERLIPIDEMIA, UNSPECIFIED Status: Chronic (5) HTN (hypertension) Code(s): I10 - ESSENTIAL (PRIMARY) HYPERTENSION Status: Chronic - Plan cont current plan of care, PT/OT * Continue medical management * PT/OT recommending rehab * Dscussed with oncology and general surgery, plan for CT guided biopsy and possible chemo in near furture * Palliative care consulted for family meeting to discuss goals of care
[2018-05-08 12:25] LABS: #Eosinphils 0.1 thou/uL (0.0-0.7); #Lymphocytes 0.6 thou/uL (1.20-3.40); #Monocytes 0.4 thou/uL (0.11-0.59); #Neutrophils 4.4 thou/uL (1.40-6.50); %Basophils 0.3 % (0.0-1.0); %Eosinophils 2.3 % (0.0-10.0); %Lymphocytes 10.6 % (21.0-51.0); %Monocytes 7.1 % (0.0-10.0); %Neutrophils 79.7 % (42.0-75.0); Hemoglobin 11.5 g/dL (12.0-16.0); Mean Corpuscular HGB CONC 30.5 g/dL (32.0-36.0); Mean Corpuscular Hemoglobin 30.8 pg (27.0-31.0); Mean Platelet Volume 8.2 fL (7.4-10.4); Platelet Count 187 thou/uL (130-400); RBC Distribution Width 13.6 % (11.5-14.5); Red Blood Cell (RBC) Count 3.72 mill/uL (4.20-5.40); White Blood Cell (WBC) Count 5.6 thou/uL (4.8-10.8)
[2018-05-08 12:48] LABS: Anion Gap 13 mmol/L (10-20); BUN (Urea Nitrogen) 12 mg/dL (9.8-20.1); Calc. Creatinine Clearance 80 mL/min (70-130); Calcium 10.1 mg/dL (7.8-10.44); Carbon Dioxide 30 mmol/L (23-31); Chloride 101 mmol/L (98-107); Estimated GFR-MDRD 66; Glucose 119 mg/dL (83-110); Potassium 4.8 mmol/L (3.5-5.1); Sodium 139 mmol/L (136-145)
[2018-05-08] MEDS: HYDROcodone/Acetaminophen 5/325 mg Tablet PO PRN (14:00)
[2018-05-08] MEDS: Pravastatin Sodium 40 MG TAB PO SCH (20:03)
[2018-05-09] MEDS: HYDROcodone/Acetaminophen 5/325 mg Tablet PO PRN ×2 (01:46→21:09)
[2018-05-09] MEDS: Levothyroxine 175 MCG TAB PO SCH (04:23)
[2018-05-09 05:11] LABS: INR-International Normal Ratio 1.4; PTT 28.2 SEC (22.9-36.1); Prothrombin Time 17.7 SEC (12.0-14.7)
[2018-05-09] MEDS ORDERED: Fentanyl 100 MCG/2 ML VIAL ONE (08:04)
[2018-05-09] MEDS ORDERED: Sodium Bicarbonate 2.5 MEQ/5 ML VIAL ONE (08:04)
[2018-05-09] MEDS ORDERED: Midazolam HCl 2 mg/2 ml Vial ONE (08:04)
[2018-05-09] MEDS: Spironolactone 25 MG TAB PO SCH (09:12)
[2018-05-09] MEDS: Potassium Chloride 20 MEQ TAB PO SCH (09:12)
[2018-05-09] MEDS: Carvedilol 3.125 MG TAB PO SCH ×2 (09:12→21:08)
[2018-05-09] MEDS: Escitalopram Oxalate 10 mg Tablet PO SCH (09:12)
[2018-05-09] MEDS: Ferrous Sulfate 325 MG TAB PO SCH (09:12)
[2018-05-09] MEDS: Furosemide 40 MG TAB PO SCH (09:12)
--- NOTE | 2018-05-09 09:12 | CT ---
LEFT INGUINAL CORE BIOPSY: HISTORY: Enlarged lymph node. TECHNIQUE: Left inguinal mass was localized using CT guidance. The overlying skin was prepped and draped in the usual sterile manner. A 1% Lidocaine solution was used to anesthetize the overlying soft tissues. A small dermatotomy was made. An outer 17 gauge needle was placed into the left inguinal lesion. Th ree 18-gauge core biopsies obtained using a 2.2 cm specimen. No complications encountered during the course of the exam. Initial Touch Prep suggests the presence of malignant cells. IMPRESSION: Successful CT-guided left groin mass biopsy. POS: [facility]
[2018-05-09] MEDS: Ondansetron PF 4 MG/2 ML Vial IVP PRN (09:14)
[2018-05-09 09:42] LABS: Hemoglobin 11.9 g/dL (12.0-16.0); Platelet Count 187 thou/uL (130-400)
--- NOTE | 2018-05-09 09:53 | PDOC.PN ---
- Subjective Encounter Start Date: 05/09/18 Encounter Start Time: 09:51 Subjective: unable to ambulate - Objective Resuscitation Status - Order Detail: 05/05/18 20:21 Resuscitation Status Routine Resuscitation Status: FULL: Full Resuscitation MAR Reviewed: Yes Vital Signs & Weight: Vital Signs (12 hours) Temp Pulse Resp BP Pulse Ox 05/09/18 07:55 97.4 F L 93 20 151/65 H 96 05/09/18 04:19 98.7 F 100 16 146/88 H 96 Weight Weight 220 lb 6.4 oz I&O: 05/08/18 05/09/18 05/10/18 06:59 06:59 06:59 Intake Total 1360 770 Balance 1360 770 Result Diagrams: 05/09/18 09:35 05/08/18 12:20 Additional Labs: Accuchecks 05/09/18 05/08/18 05/08/18 05:36 20:48 16:25 POC Glucose 110 129 H 123 H 05/08/18 10:45 POC Glucose 124 H Phys Exam - Physical Examination Neck: no JVD decreased BS, Cardiovascular: RRR, no significant murmur Gastrointestinal: soft, positive bowel sounds Musculoskeletal: no edema Dx/Plan (1) Generalized enlarged lymph nodes Code(s): R59.1 - GENERALIZED ENLARGED LYMPH NODES Status: Acute (2) Acute respiratory failure with hypoxemia Code(s): J96.01 - ACUTE RESPIRATORY FAILURE WITH HYPOXIA Status: Acute (3) Anxiety and depression Code(s): F41.9 - ANXIETY DISORDER, UNSPECIFIED; F32.9 - MAJOR DEPRESSIVE DISORDER, SINGLE EPISODE, UNSPECIFIED Status: Chronic (4) Asthma Code(s): J45.909 - UNSPECIFIED ASTHMA, UNCOMPLICATED Status: Chronic Qualifiers: Asthma severity: moderate Asthma complication type: unspecified (5) Atrial fibrillation Code(s): I48.91 - UNSPECIFIED ATRIAL FIBRILLATION Status: Chronic Qualifiers: (6) HLD (hyperlipidemia) Code(s): E78.5 - HYPERLIPIDEMIA, UNSPECIFIED Status: Chronic Qualifiers: Hyperlipidemia type: unspecified Qualified Code(s): E78.5 - Hyperlipidemia , unspecified (7) HTN (hypertension) Code(s): I10 - ESSENTIAL (PRIMARY) HYPERTENSION Status: Chronic Qualifiers: Hypertension type: essential hypertension Qualified Code(s): I10 - Essential (primary) hypertension - Plan patient with likely advanced lymphoma, resp failure, decconditioning -: needs placement at this time pending Bx results- Tx * .
[2018-05-09] MEDS: Rivaroxaban 10 MG TAB PO SCH (16:58)
[2018-05-09] MEDS: Pravastatin Sodium 40 MG TAB PO SCH (21:09)
[2018-05-10] MEDS ORDERED: Eucerin (Mineral Oil/Petrolatum,White) 30 gm Jar TOP PRN (04:07)
[2018-05-10] MEDS ORDERED: Polyethylene Glycol 3350 17 GM Packet PO PRN (04:07)
[2018-05-10] MEDS: HYDROcodone/Acetaminophen 5/325 mg Tablet PO PRN ×3 (05:22→23:09)
[2018-05-10] MEDS: Levothyroxine 175 MCG TAB PO SCH (05:22)
[2018-05-10] MEDS: Docusate 100 MG CAP PO SCH ×2 (08:34→23:12)
[2018-05-10] MEDS: Ferrous Sulfate 325 MG TAB PO SCH (08:35)
[2018-05-10] MEDS: Potassium Chloride 20 MEQ TAB PO SCH (08:35)
[2018-05-10] MEDS: Carvedilol 3.125 MG TAB PO SCH ×2 (08:36→23:13)
[2018-05-10] MEDS: Spironolactone 25 MG TAB PO SCH (08:36)
[2018-05-10] MEDS: Escitalopram Oxalate 10 mg Tablet PO SCH (08:36)
[2018-05-10] MEDS: Furosemide 40 MG TAB PO SCH (08:36)
--- NOTE | 2018-05-10 12:07 | PDOC.PN ---
- Subjective Encounter Start Date: 05/10/18 Encounter Start Time: 12:05 Subjective: weak, sob with exertion - Objective Resuscitation Status - Order Detail: 05/05/18 20:21 Resuscitation Status Routine Resuscitation Status: FULL: Full Resuscitation MAR Reviewed: Yes Vital Signs & Weight: Vital Signs (12 hours) Temp Pulse Resp BP Pulse Ox 05/10/18 07:21 97.4 F L 85 24 H 109/71 96 05/10/18 05:28 98.1 F 84 16 130/63 96 Weight Weight 219 lb 9.6 oz I&O: 05/09/18 05/10/18 05/11/18 06:59 06:59 06:59 Intake Total 770 980 250 Output Total 1740 Balance 770 -760 250 Result Diagrams: 05/09/18 09:35 05/09/18 09:35 Additional Labs: Accuchecks 05/10/18 05/10/18 05/09/18 10:42 05:27 21:14 POC Glucose 141 H 116 H 119 H 05/09/18 16:34 POC Glucose 110 Phys Exam - Physical Examination Neck: no JVD decreased BS Cardiovascular: RRR, no significant murmur Gastrointestinal: soft, positive bowel sounds Musculoskeletal: edema present Dx/Plan (1) Generalized enlarged lymph nodes Code(s): R59.1 - GENERALIZED ENLARGED LYMPH NODES Status: Acute (2) Acute respiratory failure with hypoxemia Code(s): J96.01 - ACUTE RESPIRATORY FAILURE WITH HYPOXIA Status: Acute (3) Anxiety and depression Code(s): F41.9 - ANXIETY DISORDER, UNSPECIFIED; F32.9 - MAJOR DEPRESSIVE DISORDER, SINGLE EPISODE, UNSPECIFIED Status: Chronic (4) Asthma Code(s): J45.909 - UNSPECIFIED ASTHMA, UNCOMPLICATED Status: Chronic Qualifiers: Asthma severity: moderate Asthma complication type: unspecified (5) Atrial fibrillation Code(s): I48.91 - UNSPECIFIED ATRIAL FIBRILLATION Status: Chronic Qualifiers: (6) HLD (hyperlipidemia) Code(s): E78.5 - HYPERLIPIDEMIA, UNSPECIFIED Status: Chronic Qualifiers: Hyperlipidemia type: unspecified Qualified Code(s): E78.5 - Hyperlipidemia , unspecified (7) HTN (hypertension) Code(s): I10 - ESSENTIAL (PRIMARY) HYPERTENSION Status: Chronic Qualifiers: Hypertension type: essential hypertension Qualified Code(s): I10 - Essential (primary) hypertension - Plan awaitng Bx result. insurance eval for placement -: cont lasix, coreg, etc -: cont O2, nebs * .
[2018-05-10] MEDS: Ondansetron PF 4 MG/2 ML Vial IVP PRN ×2 (14:57→23:43)
[2018-05-10] MEDS: Rivaroxaban 10 MG TAB PO SCH (16:53)
[2018-05-10] MEDS: Pravastatin Sodium 40 MG TAB PO SCH (23:13)
[2018-05-11] MEDS: Levothyroxine 175 MCG TAB PO SCH (06:13)
[2018-05-11] MEDS: Potassium Chloride 20 MEQ TAB PO SCH (08:39)
[2018-05-11] MEDS: Ferrous Sulfate 325 MG TAB PO SCH (08:39)
[2018-05-11] MEDS: Carvedilol 3.125 MG TAB PO SCH ×2 (08:39→21:23)
[2018-05-11] MEDS: Spironolactone 25 MG TAB PO SCH (08:39)
[2018-05-11] MEDS: Docusate 100 MG CAP PO SCH ×2 (08:39→21:22)
[2018-05-11] MEDS: Furosemide 40 MG TAB PO SCH (08:40)
[2018-05-11] MEDS: Escitalopram Oxalate 10 mg Tablet PO SCH (08:40)
[2018-05-11 08:47] LABS: Platelet Count 172 thou/uL (130-400)
--- NOTE | 2018-05-11 11:36 | PDOC.PN ---
- Subjective Encounter Start Date: 05/11/18 (f/u on dyspnea) Encounter Start Time: 11:33 Subjective: Pt had some wheezing and shortness of breath this morning that improved -: with a breathing tx. Low appetite, states nothing sounds good. - Objective Resuscitation Status - Order Detail: 05/05/18 20:21 Resuscitation Status Routine Resuscitation Status: FULL: Full Resuscitation Vital Signs & Weight: Vital Signs (12 hours) Temp Pulse Resp BP Pulse Ox 05/11/18 07:57 98.1 F 100 20 141/68 H 93 L 05/11/18 06:07 98.1 F 94 20 117/66 92 L 05/11/18 05:13 97 18 97 05/11/18 04:36 97.6 F 96 24 H 130/83 96 Weight Weight 221 lb I&O: 05/10/18 05/11/18 05/12/18 06:59 06:59 06:59 Intake Total 980 1190 Output Total 1740 1050 Balance -760 140 Result Diagrams: 05/11/18 08:28 05/11/18 08:28 Additional Labs: Accuchecks 05/11/18 05/11/18 05/10/18 06:17 02:20 17:13 POC Glucose 124 H 115 H 117 H EKG Reviewed by me: Yes (a fib 80-90's) Phys Exam - Physical Examination Constitutional: NAD shallow breathing, no audible w/r/r Cardiovascular: no significant murmur, irregular Gastrointestinal: soft, non-tender, positive bowel sounds Musculoskeletal: no edema Psychiatric: normal affect Dx/Plan - Plan * Continue current meds - awaiting bx result to determine tx options * pt with dante - attends [employer] - RN to contact and request pastoral support * case management consult for assistance on pt seeing her children in senior living * pt is aware that she may be at end of life and desires to see family, her sister in [place] and another in [place] in addition to her son that lives locally * liberalize diet to regular and encourage PO intake * change duoneb to scheduled * * continue home meds as ordered. * * dvt prophy and stroke risk reduction with full dose xarelto * gi prophy - not indicated * code status full * * pt remains at high risk in current condition * * anticipate pt will require retirement assistance - case management working on this. Await bx results to determine options and location of care.
[2018-05-11] MEDS: HYDROcodone/Acetaminophen 5/325 mg Tablet PO PRN (15:10)
[2018-05-11] MEDS: Rivaroxaban 10 MG TAB PO SCH (20:21)
[2018-05-11] MEDS: Pravastatin Sodium 40 MG TAB PO SCH (21:23)
--- NOTE | 2018-05-12 00:04 | EKG ---
Test Reason : Blood Pressure : / mmHG Vent. Rate : 084 BPM Atrial Rate : 084 BPM P-R Int : 000 ms QRS Dur : 066 ms QT Int : 346 ms P-R-T Axes : 000 035 042 degrees QTc Int : 408 ms Atrial fibrillation Low voltage QRS Abnormal ECG Confirmed by HUMBERTO BROWN MD ([id number]), editorial director LIZZY FIGUEROA ([id number]) on 05/12/2018 12:03:55 AM Referred By: Confirmed By:HUMBERTO BROWN MD
[2018-05-12] MEDS: HYDROcodone/Acetaminophen 5/325 mg Tablet PO PRN ×2 (00:46→12:48)
[2018-05-12] MEDS: Ondansetron PF 4 MG/2 ML Vial IVP PRN (00:51)
[2018-05-12] MEDS: Levothyroxine 175 MCG TAB PO SCH (06:09)
[2018-05-12] MEDS: Potassium Chloride 20 MEQ TAB PO SCH (08:53)
[2018-05-12] MEDS: Ferrous Sulfate 325 MG TAB PO SCH (08:53)
[2018-05-12] MEDS: Spironolactone 25 MG TAB PO SCH (08:54)
[2018-05-12] MEDS: Docusate 100 MG CAP PO SCH ×2 (08:54→19:49)
[2018-05-12] MEDS: Carvedilol 3.125 MG TAB PO SCH ×2 (08:54→19:51)
[2018-05-12] MEDS: Furosemide 40 MG TAB PO SCH (08:54)
[2018-05-12] MEDS: Escitalopram Oxalate 10 mg Tablet PO SCH (08:54)
--- NOTE | 2018-05-12 12:39 | PDOC.PN ---
- Subjective Encounter Start Date: 05/12/18 Encounter Start Time: 12:35 Subjective: f/u for back pain and lymphadenopathy s/p inguinal bx with pending path. -: Awaiting placement options. - Objective Resuscitation Status - Order Detail: 05/05/18 20:21 Resuscitation Status Routine Resuscitation Status: FULL: Full Resuscitation MAR Reviewed: Yes Vital Signs & Weight: Vital Signs (12 hours) Temp Pulse Resp BP Pulse Ox 05/12/18 08:14 98.0 F 116 H 20 114/60 95 05/12/18 06:59 93 L 05/12/18 06:58 97 16 05/12/18 03:53 97.8 F 103 H 24 H 111/59 L 91 L 05/12/18 00:57 110 H 18 94 L Weight Weight 216 lb 8 oz I&O: 05/11/18 05/12/18 05/13/18 06:59 06:59 06:59 Intake Total 1190 640 Output Total 1050 104 Balance 140 536 Result Diagrams: 05/11/18 08:28 05/11/18 08:28 Additional Labs: Accuchecks 05/12/18 05/12/18 05/11/18 11:24 06:13 21:11 POC Glucose 221 H 130 H 140 H 05/11/18 05/11/18 17:20 11:42 POC Glucose 137 H 158 H Microbiology 05/05/18 22:19 Venous blood - Left Hand Blood Culture - Final NO GROWTH IN 5 DAYS 05/05/18 22:14 Venous blood - Right Hand Blood Culture - Final NO GROWTH IN 5 DAYS 05/05/18 17:11 Urine Straight Catheter Urine Culture - Final NO GROWTH AT 48 HOURS Radiology Reviewed by me: Yes (CT chest - multiple bilat lymphadenopathy, new) EKG Reviewed by me: Yes (Tele - A-fib in 80's) Phys Exam - Physical Examination Constitutional: NAD HEENT: PERRLA, sclera anicteric, oral pharynx no lesions Neck: no nodes, no JVD, supple, full ROM Respiratory: no wheezing, no rales, no rhonchi, clear to auscultation bilateral S1, S2 Cardiovascular: no rub, irregular Gastrointestinal: soft, non-tender, no distention, positive bowel sounds Musculoskeletal: no edema, pulses present Neurological: normal sensation, moves all 4 limbs Psychiatric: normal affect, A&O x 3 Skin: normal turgor, cap refill <2 seconds Dx/Plan (1) Generalized enlarged lymph nodes Code(s): R59.1 - GENERALIZED ENLARGED LYMPH NODES Status: Chronic Comment: suspected lymphoma recurrence given hx of B-cell lymphoma, ? hospice vs tx (2) Atrial fibrillation Code(s): I48.91 - UNSPECIFIED ATRIAL FIBRILLATION Status: Chronic Qualifiers: Atrial fibrillation type: persistent Qualified Code(s): I48.1 - Persistent atrial fibrillation Comment: Rate-controlled, continue med mgmt (3) Chronic anticoagulation Code(s): Z79.01 - DETENTION (CURRENT) USE OF ANTICOAGULANTS Status: Chronic Comment: Continue Xarelto (4) DM2 (diabetes mellitus, type 2) Status: Chronic Qualifiers: Comment: Diet managed, Metformin d/c'd due lactic acidosis, ISS (5) HTN (hypertension) Code(s): I10 - ESSENTIAL (PRIMARY) HYPERTENSION Status: Chronic Qualifiers: Hypertension type: essential hypertension Qualified Code(s): I10 - Essential (primary) hypertension Comment: Continue Coreg, stable (6) Physical deconditioning Code(s): R53.81 - OTHER MALAISE Status: Chronic Comment: PT for mobilization and ROM exercises, SNF options - Plan PT/OT, community mental health social worker, DVT proph w/SCDs Stable currently -: Continue Lasix 40mg daily -: Continue Xarelto -: Hold Metformin due to lactic acidosis -: PT for mobilization * Await final lymph node bx results * CM for SNF options
[2018-05-12] MEDS: Rivaroxaban 10 MG TAB PO SCH (18:55)
[2018-05-12] MEDS: Pravastatin Sodium 40 MG TAB PO SCH (19:49)
[2018-05-13] MEDS: Levothyroxine 175 MCG TAB PO SCH (04:01)
[2018-05-13] MEDS: HYDROcodone/Acetaminophen 5/325 mg Tablet PO PRN ×3 (06:18→20:31)
[2018-05-13] MEDS: Ferrous Sulfate 325 MG TAB PO SCH (08:59)
[2018-05-13] MEDS: Carvedilol 3.125 MG TAB PO SCH ×2 (09:00→20:33)
[2018-05-13] MEDS: Spironolactone 25 MG TAB PO SCH (09:00)
[2018-05-13] MEDS: Potassium Chloride 20 MEQ TAB PO SCH (09:00)
[2018-05-13] MEDS: Furosemide 40 MG TAB PO SCH (09:01)
[2018-05-13] MEDS: Docusate 100 MG CAP PO SCH ×2 (09:01→20:31)
[2018-05-13] MEDS: Escitalopram Oxalate 10 mg Tablet PO SCH (09:01)
[2018-05-13 13:09] LABS: Hemoglobin 12.9 g/dL (12.0-16.0); Platelet Count 182 thou/uL (130-400)
[2018-05-13] MEDS: Rivaroxaban 10 MG TAB PO SCH (17:29)
--- NOTE | 2018-05-13 18:54 | PDOC.PN ---
- Subjective Encounter Start Date: 05/13/18 Encounter Start Time: 18:30 Subjective: f/u for gen weakness, adenopathy s/p inguinal bx showing high-grade B-cell -: lymphoma. Awaiting SNF approval. - Objective Resuscitation Status - Order Detail: 05/05/18 20:21 Resuscitation Status Routine Resuscitation Status: FULL: Full Resuscitation MAR Reviewed: Yes Vital Signs & Weight: Vital Signs (12 hours) Temp Pulse Resp BP Pulse Ox 05/13/18 15:59 97.9 F 104 H 26 H 145/73 H 92 L 05/13/18 11:43 97.6 F 100 26 H 106/68 92 L 05/13/18 07:45 98.3 F 120 H 31 H 136/71 92 L Weight Weight 224 lb 1.6 oz I&O: 05/12/18 05/13/18 05/14/18 06:59 06:59 06:59 Intake Total 640 1037 Output Total 104 800 Balance 536 237 Result Diagrams: 05/13/18 13:00 05/13/18 13:00 Additional Labs: Accuchecks 05/13/18 05/13/18 05/13/18 17:12 10:29 06:09 POC Glucose 100 230 H 121 H 05/12/18 20:27 POC Glucose 145 H Microbiology 05/05/18 22:19 Venous blood - Left Hand Blood Culture - Final NO GROWTH IN 5 DAYS 05/05/18 22:14 Venous blood - Right Hand Blood Culture - Final NO GROWTH IN 5 DAYS 05/05/18 17:11 Urine Straight Catheter Urine Culture - Final NO GROWTH AT 48 HOURS EKG Reviewed by me: Yes (Tele - A-fib in 80's) Phys Exam - Physical Examination Constitutional: NAD HEENT: PERRLA, sclera anicteric, oral pharynx no lesions Neck: no nodes, no JVD, supple, full ROM diminished in bases Respiratory: no wheezing S1, S2 Cardiovascular: no significant murmur, no rub, irregular Gastrointestinal: soft, non-tender, no distention, positive bowel sounds Musculoskeletal: no edema, pulses present Neurological: normal sensation, moves all 4 limbs Psychiatric: A&O x 3 Skin: normal turgor, cap refill <2 seconds Dx/Plan (1) B-cell lymphoma Code(s): C85.10 - UNSPECIFIED B-CELL LYMPHOMA, UNSPECIFIED SITE Status: Acute Qualifiers: B-cell lymphoma type: diffuse large B-cell Comment: Recurrence after previous 6-cycle chemotherapy in 2016, outpt follow up for discussions on tx options and timing of tx (2) Generalized enlarged lymph nodes Code(s): R59.1 - GENERALIZED ENLARGED LYMPH NODES Status: Chronic Comment: Recurrence of B-cell lymphoma, see #1 (3) Atrial fibrillation Code(s): I48.91 - UNSPECIFIED ATRIAL FIBRILLATION Status: Chronic Qualifiers: Atrial fibrillation type: persistent Qualified Code(s): I48.1 - Persistent atrial fibrillation Comment: Rate-controlled, continue med mgmt (4) Chronic anticoagulation Code(s): Z79.01 - LONGTERM (CURRENT) USE OF ANTICOAGULANTS Status: Chronic Comment: Continue Xarelto (5) DM2 (diabetes mellitus, type 2) Status: Chronic Qualifiers: Comment: Diet managed, Metformin d/c'd due lactic acidosis, ISS (6) HTN (hypertension) Code(s): I10 - ESSENTIAL (PRIMARY) HYPERTENSION Status: Chronic Qualifiers: Hypertension type: essential hypertension Qualified Code(s): I10 - Essential (primary) hypertension Comment: Continue Coreg, stable (7) Physical deconditioning Code(s): R53.81 - OTHER MALAISE Status: Chronic Comment: PT for mobilization and ROM exercises, SNF options - Plan PT/OT, director of social services, out of bed/ambulate, DVT proph w/SCDs Stable currently -: Continue PT/OT for mobilization -: Continue Xarelto -: Continue Aldactone/Lasix -: Likely d/c to [facility] in am * .
[2018-05-13] MEDS: Pravastatin Sodium 40 MG TAB PO SCH (20:32)
[2018-05-14] MEDS: Levothyroxine 175 MCG TAB PO SCH (04:06)
[2018-05-14] MEDS: Spironolactone 25 MG TAB PO SCH (09:46)
[2018-05-14] MEDS: Potassium Chloride 20 MEQ TAB PO SCH (09:46)
[2018-05-14] MEDS: Escitalopram Oxalate 10 mg Tablet PO SCH (09:47)
[2018-05-14] MEDS: Furosemide 40 MG TAB PO SCH (09:47)
[2018-05-14] MEDS: Docusate 100 MG CAP PO SCH (09:47)
[2018-05-14] MEDS: Carvedilol 3.125 MG TAB PO SCH (09:47)
[2018-05-14] MEDS: Ferrous Sulfate 325 MG TAB PO SCH (09:47)
[2018-05-14] MEDS: HYDROcodone/Acetaminophen 5/325 mg Tablet PO PRN ×2 (12:08→16:45)
[2018-05-14 16:22] VITALS: BP 118/55; TEMP 97.8
[2018-05-14] MEDS: Rivaroxaban 10 MG TAB PO SCH (16:45)
--- NOTE | 2018-05-15 04:34 | DIS ---
DATE OF ADMISSION: 05/05/2018 DATE OF DISCHARGE: 05/14/2018 DISCHARGE DIAGNOSES: 1. Diffuse large B-cell lymphoma with recurrence. 2. Generalized lymphadenopathy. 3. Chronic atrial fibrillation with controlled rate. 4. Chronic anticoagulation with Xarelto. 5. Diabetes mellitus type 2, stable. 6. Hypertension, stable. 7. Physical deconditioning. CONSULTATIONS: Dr. Covington with Medical Oncology Service. PERTINENT LAB AND X-RAY FINDINGS: Lactic acid level ranged between 2.3 to 4.9. Troponin negative x1. Albumin 3.6, procalcitonin 0.04. CBC showed a white blood cell count ranging between 5.3 to 6.2, hemoglobin ranged between 11.1 to 12.2. Blood cultures x2 dated 05/05/2018 showed no growth at 5 days. Urine culture dated 05/05/2018 showed no growth at [address] of the abdomen and pelvis dated 05/05/2018 showed diffuse lymphadenopathy in the aortocaval, pelvic, and inguinal region. Portable chest x-ray dated 05/05/2018 showed medial right upper lung zone pulmonary nodule, stable. Atelectasis of the left lung base. No acute cardiopulmonary process noted. CT of the chest dated 05/06/2018 showed extensive new lymphadenopathy in the mediastinum, bilateral hilar and axillary regions. Right greater than left pleural effusion. Inguinal lymph node pathology dated 05/09/2018 showed high-grade B-cell lymphoma. HOSPITAL COURSE: The patient was admitted after presenting with left-sided back pain. The patient underwent extensive evaluation including chest, abdomen and pelvic imaging showing diffuse lymphadenopathy in the context of prior history of B-cell lymphoma. The patient was given general supportive management including pain control and underwent specialized imaging including CT modality showing evidence of prominent lymphadenopathy and concern for lymphoma recurrence. The patient was evaluated by the general surgery service, undergoing a lymph node biopsy with pathology confirming diffuse large B-cell lymphoma. The patient was also noted with lactic acidosis at the time of admission and discontinued on metformin. Serial monitoring showed overall improvement in lactic acid level with current recommendations to discontinue metformin indefinitely. The patient also noted with severe deconditioning and generalized weakness, undergoing physical therapy evaluation. The patient was able to stand by the bedside with assistance for short periods of time with current recommendations to continue with supervised medical care and ongoing physical and occupational therapy. The patient has been approved to transfer to [facility] on 05/14/2018. I have examined the patient at the time of discharge and discussed followup instructions. The patient verbalized understanding and in agreement, ready for discharge, 05/14/2018. DISCHARGE MEDICATIONS: 1. Coreg 3.125 mg p.o. b.i.d. 2. Lexapro 10 mg p.o. daily. 3. Lasix 40 mg p.o. daily. 4. Levothyroxine 175 mcg p.o. daily. 5. Protonix 40 mg p.o. daily. 6. Potassium chloride 10 mEq p.o. daily. 7. Pravachol 40 mg p.o. at bedtime. 8. Temazepam 15 mg p.o. at bedtime p.r.n. 9. Proventil HFA 2 puffs inhaled q.6 hours p.r.n. 10. Ferrous sulfate 325 mg p.o. daily. 11. DuoNeb 3 mL nebulized q.6 hours p.r.n. 12. MiraLAX 17 g p.o. daily. 13. Xarelto 20 mg p.o. daily. 14. Aldactone 25 mg p.o. q.a.m. FOLLOWUP: The patient to follow up with Dr. Gretchen Pearson within 7 days of discharge. The patient will follow up with Zaira Gale with Medical Oncology Service and to call our office for appointment time and date. CONDITION ON DISCHARGE: Fair. ACTIVITY: Ad vicky. Rolling walker with standby/contact guard assistance. General fall risk precautions. DIET: ADA. CODE STATUS: Full. DISPOSITION: [facility], 05/14/2018. Job ID: [id number]
== END 2018-05-14 17:15 ==
LOC: ERS 15:22 → 2SW 18:20
PROVIDERS: ADMIT Hospitalist; ATTEND Hospitalist
PROC: 07DJ3ZX Extraction of Left Inguinal Lymphatic, Percutaneous Approach, Diagnostic (ICD-10-PCS; principal; 2018-05-09)
DX: C83.35 Diffuse large B-cell lymphoma, lymph nodes of inguinal region and lower limb (principal); I48.2 Chronic atrial fibrillation; E11.9 Type 2 diabetes mellitus without complications; I11.0 Hypertensive heart disease with heart failure; I50.9 Heart failure, unspecified; K57.30 Diverticulosis of large intestine without perforation or abscess without bleeding; J90 Pleural effusion, not elsewhere classified; E03.9 Hypothyroidism, unspecified; J44.9 Chronic obstructive pulmonary disease, unspecified; F32.9 Major depressive disorder, single episode, unspecified; E78.00 Pure hypercholesterolemia, unspecified; M06.9 Rheumatoid arthritis, unspecified; R59.0 Localized enlarged lymph nodes; J96.01 Acute respiratory failure with hypoxia; R53.81 Other malaise; I48.1 Persistent atrial fibrillation; E66.01 Morbid (severe) obesity due to excess calories; Z68.37 Body mass index [BMI] 37.0-37.9, adult; Z79.01 Long term (current) use of anticoagulants; Z79.84 Long term (current) use of oral hypoglycemic drugs; Z79.899 Other long term (current) drug therapy
CPT/HCPCS: 38505; 49180; 51701; 71045; 71260; 74177; 77012; 80048 ×2; 80053; 82565 ×4; 82962 ×10; 83605; 83615; 83690; 84145; 84484; 85014 ×4; 85018 ×4; 85025 ×3; 85049 ×4; 85610; 85730; 87040; 87086; 88184 ×2; 88305; 88333; 88334; 88341; 88342; 88360; 88365; 93005; 94640 ×7; 96361; 96374; 96376 ×5; 97110 ×3; 97139 ×2; 97530 ×5; 99285; G0378 ×3; 36415; 36416; 81003; 81015; A4353; J1815; J2250; J2270; J2405; J3010; J7620; Q9966